=== PATIENT | male | born 1965 | race Caucasian/White ===

== ENCOUNTER 2018-05-14 13:25 | Emergency (ER) | payer MEDICAID, SELFPAY ==
[2018-05-14 13:30] VITALS: BP 118/89; PULSE 74; RESP 18; TEMP 36.7; O2SAT 100
--- NOTE | 2018-05-14 14:00 | DI.REPORT_ITS ---
SYMPTOMS/DIAGNOSIS: LT FLANK PAIN, HX OF NEPHROLITHIASIS RENAL ULTRASOUND: The kidneys are normal in size and shape. There is an apparent lower pole left renal calculus measuring about 18 mm in greatest diameter. There is no hydronephrosis on either side. The urinary bladder is empty. CONCLUSION: Findings consistent with nonobstructing left lower pole renal calculi.
--- NOTE | 2018-05-14 14:02 | ED.GENADUL_ITS ---
Disposition Instructions: Kidney Stones (ED) Additional Instructions: Encourage hydration. Continue with pain management as previously advised. Keep upcoming appointment with urology on 05/21/18 at 3PM with Aminta Malone. If you develop fevers/chills, increased flank pain, change in urinary habits or other new/worsening symptoms please seek care urgently once again. We will contact you with any positive culture results. Referrals: Karlo Daniel MD [ [facility] STAFF PHYSICIAN] - Medical Decision Making - Lab Data Laboratory Tests 05/14/18 05/14/18 05/14/18 14:20 14:20 15:07 WBC 7.73 RBC 5.10 Hgb 15.7 Hct 47.8 MCV 93.7 MCH 30.8 MCHC 32.8 RDW 13.6 Plt Count 219 MPV 8.9 Immature Gran % 0.1 Neutrophils % 64.5 Lymphocytes % 25.2 Monocytes % 6.7 Eosinophils % 3.1 Basophils % 0.4 Absolute Neutrophils 4.98 Absolute Lymphocytes 1.95 Absolute Monocytes 0.52 Absolute Eosinophils 0.24 Absolute Basophils 0.03 Sodium 138 Potassium 4.2 Chloride 104 Carbon Dioxide 30.9 Anion Gap 3.1 BUN 14 Creatinine 1.24 Estimated GFR/1.73 m2 >= 60.00 Glucose 87 Calcium 8.8 Total Bilirubin 0.6 AST 18 ALT 20 Alkaline Phosphatase 86 Total Protein 7.5 Albumin 3.3 L Lipase 99 Urine Color Yellow Urine Clarity Sl cloudy Urine pH 5.5 Ur Specific [place] 1.020 Urine Protein Negative Urine Ketones Negative Urine Blood Small H Urine Nitrite Negative Urine Bilirubin Negative Urine Urobilinogen 1.0 H Ur Leukocyte Esterase Small H Urine RBC 10-20 H Urine WBC 20-50 Ur Epithelial Cells Few Urine Crystals Negative Urine Bacteria Few Urine Casts Negative Urine Mucus Trace Urine Other Negative Ur Culture Indicated? Yes Urine Glucose Negative Results reviewed for labs ordered during visit: Yes - Medical Decision Making Patient presents today with multiple complaints. Many of which sound chronic. Constipation is unchanged. He reports that he had a large nonpainful bowel movement today. No blood in his stool. Patient was concerned about this pop he had been having a bowel movement 4 days prior. However, pain was very short- lived. He denies any abdominal pain. No abdominal pain elicited with palpation. Patient's primary concern today is that he has an infected kidney stone. He reports that he has a known kidney stone in the lower pole left kidney. This is diagnosed at the [place] 7 years ago. States that he has had waxing and waning discomfort associated with this. States that 2 days ago he began noting some small amount of discomfort on the left flank. Patient does report that the right flank hurts more than the left. However, on exam no CVA tenderness on the right side was elicited. Reports that he had fevers while at home last night. However, he is afebrile today. He appears nontoxic. Will obtain renal ultrasound and laboratory evaluation. We were contacted by radiology, they advised nonobstructing kidney stone in the lower pole of the left kidney. None noted in the right. Labs significant for small amount of leukocyte esterase in the urine. 10-20 RBCs in the urine, 20-50 WBCs in the urine. Few epithelial cells and few bacteria in the urine. Patient does report that he typically have RBCs and has been told us associated with his chronic kidney stone. No leukocytosis. No shift. Consulted with Aminta Malone NP with urology. We discussed patient's history , physical exam findings and laboratory results. She advised that at this point no intervention was necessary. Advised waiting on culture results before beginning antibiotics. She advised that is Protheus grows out she advised this should be treated by urology and begun on Cipro as this is difficult to treat with a stone. Advised f/u with urology in the next 1-2 weeks. Discussed these findings and recommendations with the patient. Encouraged hydration. Patient has chronic pain and has chronic pain plan for discomfort. He is now reporting that he needs to take any extra analgesics for the flank pain. Continues to report the flank pain is minimal at the right side remains less than the worse despite no stone on that side no CVA tenderness on exam. Patient continues to appear nontoxic. Remains afebrile. Appointment was made with urology for next week. Advised we will contact him with any positive results from culture. We discussed new/worsening symptoms when to seek care urgently once again. All his questions and concerns were addressed and he is in agreement this plan. History of Present Illness - General Chief complaint: GenMedical Stated complaint: UNKNOWN Time Seen by Provider: 05/14/18 13:32 Source: patient, RN notes reviewed Mode of arrival: ambulatory Limitations: no limitations - History of Present Illness Initial comments: Patient is a 52-year-old male today with chief complaint of left flank pain. He reports that he has history of nephrolithiasis. Reports that he has had infected stones historically and has needed to have these surgically extracted. Reports that he has a known left kidney stone. States that he is had some discomfort with urination over the past 2 days. States that it is not pain but discomfort. States it is minimal. Has not noted a change in urgency or frequency. Reports that he has history of urgency secondary to enlarged prostate. Denies dysurea. Reports that yesterday he began feeling rundown. States that he had a T-max of 103 F last night. Patient also reports that he has a long history of constipation. States that he has had difficulty with constipation for the past 5 months secondary to 3 times daily Tylenol codeine dosing. Reports that he takes stool softeners daily and typically has bowel movement every 4-5 days. Reports that he had normal hard bowel movement this morning with no discomfort. However, patient is also concerned that he felt a pop 4 days ago when straining for bowel movement. Reports that he had discomfort that was sudden and severe in the left lower quadrant. Reports that this pain resolved within the following 30 seconds and is not had discomfort in this area since. Denies any blood in his stool. Denies pain with BM today. Denies any continued abdominal pain. Denies any nausea or vomiting. Denies any chest pain or shortness of breath. - Related Data Acetaminophen [Tylenol Extra Strength] 1,000 mg PO DAILY 05/14/18 Bupropion HCl [Bupropion Xl] 300 mg PO DAILY 05/14/18 Chlor Tab 1 tab PO QAM 05/14/18 Codeine/APAP 30/300, 5 tabs/bt [Tylenol W/Codeine #3 Tablet, 5 tabs/btl] 1 tab PO DAILY 05/14/18 Gabapentin 100 mg PO BID 05/14/18 Ibuprofen [Ibuprofen Ib] 1 tab PO DIRECTED 05/14/18 Lisinopril 5 mg PO DAILY 05/14/18 Melatonin 20 mg PO HS 05/14/18 Methocarbamol 750 mg PO TID 05/14/18 Trazodone HCl 150 mg PO HS 05/14/18 Allergies Allergy/AdvReac Type Severity Reaction Status Date / Time shrimp Allergy Intermediate Skin Rash Unverified 05/14/18 13:37 Review of Systems Constitutional: see HPI, chills, fever. denies: malaise Respiratory: no symptoms reported. denies: cough, shortness of breath Cardiovascular: denies: chest pain, palpitations Gastrointestinal: as per HPI, constipation. denies: abdominal pain (None current), nausea, vomiting, melena Genitourinary: as per HPI, urgency (Chronic, patient associates it with enlarged prostate. No recent change in this), dysuria. denies: frequency, hematuria, discharge, testicular pain, testicular mass Musculoskeletal: back pain (Reports that he has left-sided back pain) Skin: denies: rash, lesions, change in color Past Medical History - Past Medical History Medical history: hypertension bipolar, nephrolithiasis s/p lithotripsy, obesity, chronic knee pain, Surgical history: other (lithotripsy) Psychiatric history: bipolar General Exam - General Limitations: no limitations General appearance: alert, in no apparent distress - Head Head exam: Present: atraumatic - Eye Eye exam: Present: normal apperance - Respiratory Respiratory exam: Present: normal lung sounds bilaterally. Absent: respiratory distress - Cardiovascular Cardiovascular Exam: Present: regular rate, normal rhythm, normal heart sounds - GI/Abdominal GI/Abdominal exam: Present: soft, normal bowel sounds. Absent: distended, tenderness, guarding, rebound, organomegaly - Rectal Rectal exam: Present: deferred - Extremities Exam Extremities exam: Present: normal inspection - Back Exam Back exam: Present: CVA tenderness (L) (minimal ). Absent: CVA tenderness (R), rash noted - Neurological Exam Neurological exam: Present: alert, normal gait - Psychiatric Psychiatric exam: Present: normal affect, normal mood - Skin Skin exam: Present: warm, dry, normal color. Absent: rash Course Vital Signs - 24 hr 05/14/18 13:30 Temperature 36.7 C Pulse 74 Respiratory 18 Rate Blood Pressure 118/89 Pulse Oximetry 100
[2018-05-14 14:27] LABS: Abs Immature Grans 0.01 k/cumm (0.0-0.09); Absolute Basophil Count 0.03 k/cumm (0.0-0.2); Absolute Eosinophil Count 0.24 k/cumm (0.0-0.7); Absolute Lymphocyte Count 1.95 k/cumm (1.2-3.4); Absolute Monocyte Count 0.52 k/cumm (0.11-0.7); Absolute Neutrophil Count 4.98 k/cumm (1.2-6.7); Basophils % 0.4; Eosinophils % 3.1; HCT 47.8 % (40.0-50.0); HGB 15.7 g/dL (13.5-17.5); Immature Grans % 0.1; Lymphocytes % 25.2; Mean Corp. HGB Concentration 32.8 g/dL (32.0-36.0); Mean Corpuscular Hemoglobin 30.8 pg (27.0-33.0); Mean Corpuscular Volume 93.7 fL (80-95); Mean Platelet Volume 8.9 fL (8.0-11.0); Monocytes % 6.7; Neutrophils % 64.5; Platelet Count 219 x1000/uL (130-400); RBC Distribution Width 13.6 % (11.8-14.1); White Blood Cell Count 7.73 k/cumm (4.4-10.8)
[2018-05-14 14:48] LABS: ALT 20 U/L (12-78); AST 18 U/L (15-37); Albumin 3.3 g/dL (3.4-5.0); Alkaline Phosphatase 86 U/L (46-116); Anion Gap 3.1 mmol/L (3-11); BUN 14 mg/dL (7-18); Bilirubin, Total 0.6 mg/dL (0.2-1.0); CO2 30.9 mmol/L (21.0-32.0); CREATININE 1.24 mg/dL (0.70-1.30); Calcium 8.8 mg/dL (8.5-10.1); Chloride 104 mmol/L (98-107); Glucose 87 mg/dL (70-100); Lipase 99 U/L (73-393); Potassium 4.2 mmol/L (3.5-5.1); Sodium 138 mmol/L (136-145); Total Protein 7.5 g/dL (6.4-8.2)
[2018-05-14 15:21] LABS: Bilirubin Negative (Negative); Blood Small (Negative); Clarity Sl Cloudy; Glucose Negative (Negative); Ketones Negative (Negative); Leukocyte Esterase Small (Negative); Nitrite Negative (Negative); pH 5.5 (5-8)
[2018-05-14 15:35] LABS: WBC 20-50 HPF (0-5)
[2018-05-14 15:36] LABS: Bacteria Few HPF (Negative); C & S Indicated? Yes; Casts Negative LPF (Negative); Crystals Negative HPF (Negative); Epithelial Cells Few HPF (Negative); Mucus Trace (Negative); Other Cells Negative (Negative)
[2018-05-14 16:26] VITALS: BP 124/65; PULSE 68; RESP 16; TEMP 36.7; O2SAT 98
== END 2018-05-14 16:04 ==
PROVIDERS: Physician Assistant; Emergency Provider Physician Assistant
DX: N20.0 Calculus of kidney (principal); I10 Essential (primary) hypertension
CPT/HCPCS: 36415; 76770; 80053; 83690; 99284; 81003; 81015; 85025; 87086

== ENCOUNTER 2018-05-21 16:23 | Outpatient (CLI) | payer MEDICAID, SELFPAY ==
[2018-05-21 17:04] LABS: Bacteria Rare HPF (Negative); Epithelial Cells Rare HPF (Negative); Other Cells Few Transitional (Negative); RBC >50 (0-2); WBC >50 HPF (0-5)
[2018-05-21 17:05] LABS: C & S Indicated? Yes; Casts Negative LPF (Negative); Crystals Few Calcium Oxalate HPF (Negative); Mucus Negative (Negative)
[2018-05-23 10:41] LABS: PSA, Screening 0.8 ng/ml (0-3.5)
== END 2018-05-21 16:24 ==
PROVIDERS: Visit Provider Nurse Practitioner Gerontology
DX: N20.0 Calculus of kidney (principal); N40.0 Benign prostatic hyperplasia without lower urinary tract symptoms; Z12.5 Encounter for screening for malignant neoplasm of prostate
CPT/HCPCS: 36415; 84153; 81015; 87086

== ENCOUNTER 2018-05-21 17:16 | Outpatient (REF) | payer MEDICAID, SELFPAY ==
[2018-05-21 21:44] LABS: Bacteria Few HPF (Negative); Crystals Few Calcium Oxalate HPF (Negative); Epithelial Cells Few HPF (Negative); Other Cells Few Transitional (Negative); RBC >50 (0-2); WBC >50 HPF (0-5)
[2018-05-21 21:45] LABS: Mucus Trace (Negative)
[2018-05-21 21:47] LABS: C & S Indicated? Yes; Casts Negative LPF (Negative)
== END 2018-05-21 17:17 ==
LOC: LBN 17:16
PROVIDERS: Visit Provider Nurse Practitioner Gerontology
DX: N20.0 Calculus of kidney (principal)
CPT/HCPCS: 81015; 87086

== ENCOUNTER 2018-06-16 00:43 | Outpatient (CLI) | payer MEDICAID, SELFPAY ==
--- NOTE | 2018-06-16 13:46 | DI.US_ITS ---
SYMPTOM/DIAGNOSIS: LT TESTICULAR PAIN, N50.812, LUMP TESTICULAR ULTRASOUND: Routine examination. No priors. The right testicle measures 3.7 by 2.7 by 2.5 cm. There is normal blood flow. No intratesticular mass is seen. There are multiple echogenic foci throughout the right testicle. No evidence of torsion. The right epididymis is grossly unremarkable. The left testicle measures 3.7 by 2.7 by 3.1 cm There is normal blood flow. No intratesticular mass is seen. No evidence of torsion is present. There are multiple echogenic foci within the testicle. The left epididymis contains multiple simple cysts throughout its length. Within the epididymal head, there is a 1.4 cm. simple cyst. Throughout the body and tail, there are at least four cysts noted. The largest superiorly measures 1.9 cm. The next largest is in the tail and measures 1.8 cm. IMPRESSION: Multiple echogenic foci seen throughout both testicles suggesting microlithiasis. Multiple cysts seen throughout the left epididymis, the largest measures 1.9 cm. No definite intratesticular mass is identified at this time.
== END 2018-06-16 01:03 ==
PROVIDERS: Visit Provider Nurse Practitioner Gerontology
DX: N50.812 Left testicular pain (principal); N50.3 Cyst of epididymis; N50.89 Other specified disorders of the male genital organs
CPT/HCPCS: 76870

== ENCOUNTER 2018-08-07 02:05 | Outpatient (CLI) | payer MEDICAID, SELFPAY | END 2018-08-07 02:25 | DX: R55 Syncope and collapse (principal); Z53.8 Procedure and treatment not carried out for other reasons ==

== ENCOUNTER 2018-10-24 10:00 | Emergency (ER) | payer MEDICAID, SELFPAY ==
[2018-10-24 10:07] VITALS: BP 135/65; PULSE 86; RESP 16; TEMP 37.2; O2SAT 95
--- NOTE | 2018-10-24 10:12 | W.ED.GENAD ---
Discharge Plan Disposition Patient Disposition: HOME Condition: Improving Discharge Details Chief Complaint: Orthopedic Clinical Impression: Right foot strain Primary Care Provider: [place] [place] ED Provider: Anup Lopez Home Meds and New Rx's Prescriptions: Continued tamsulosin 0.4 mg capsule 0.8 mg PO DAILY Qty: 180 RF: 3 buspirone 10 mg Tablet 10 mg PO BID RF: 0 hydrocodone bitartrate 10 mg Capsule, Oral Only, Er 12hr 10 mg PO Q12H RF: 0 bupropion HCl 300 MG tablet extended release 24 hr 300 mg PO DAILY RF: 0 methocarbamol 750 MG tablet 750 mg PO TID RF: 0 lisinopril 5 MG tablet 5 mg PO DAILY RF: 0 gabapentin 100 MG capsule 100 mg PO BID RF: 0 trazodone 50 MG tablet 150 mg PO HS RF: 0 acetaminophen [Tylenol Extra Strength] 500 MG tablet 1,000 mg PO DAILY RF: 0 Chlor Tab 1 tab PO QAM RF: 0 melatonin 10 MG tablet 20 mg PO HS RF: 0 Ibuprofen [Ibuprofen Ib] 200 MG tablet 1 tab PO DIRECTED RF: 0 Discharge Instructions Additional Instructions: Wear postop/hard soled shoe for 7-10 days time. Elevate and apply ice to reduce discomfort. Return or see regular doctor if you have ongoing discomfort after 10 days. Continue all regular medication Medical Decision Making 53-year-old male was walking 2 days ago when he felt a pop in his right foot at the area of the right fifth proximal metatarsal. He said pain with ambulation since that time and mild swelling. He is afebrile and otherwise well-appearing. Referred for x-ray which does not reveal acute fracture. We will place in a postop shoe to treat for strain. He understands the possibility for occult fracture and will follow-up if not improving in 7-10 days time HPI General Mode of arrival: ambulatory. Date/Time Provider Initiated Documentation: 10/24/18 10:09. Limitations to Documentation: no limitations. Information obtained by: patient. History of Present Illness 53 year old M presents to the emergency department with the chief complaint of Right foot pain times 2 days that began while walking with a pop sensation, described as moderate, Quality is described as aching, and is localized to the right and lower extremity. Patient reports no radiation. Patient started experiencing this day(s) and it has been constant. No relieving factors improve symptom(s), and Rest improves symptom(s), Movement worsens symptoms . Patient notes no other symptoms.. Patient did receive the following treatments prior to arrival, none Related Data Home Medications Medication Instructions Recorded Confirmed Chlor Tab 1 tab PO QAM 05/14/18 06/05/18 Ibuprofen [Ibuprofen Ib] 1 tab PO DIRECTED 05/14/18 10/24/18 acetaminophen [Tylenol Extra 1,000 mg PO DAILY 05/14/18 10/24/18 Strength] bupropion HCl 300 mg PO DAILY 05/14/18 10/24/18 gabapentin 100 mg PO BID 05/14/18 10/24/18 lisinopril 5 mg PO DAILY 05/14/18 10/24/18 melatonin 20 mg PO HS 05/14/18 10/24/18 methocarbamol 750 mg PO TID 05/14/18 10/24/18 trazodone 150 mg PO HS 05/14/18 10/24/18 tamsulosin 0.4 mg capsule 0.8 mg PO DAILY #180 tab-cap 06/05/18 10/24/18 buspirone 10 mg PO BID 10/24/18 10/24/18 hydrocodone bitartrate 10 mg PO Q12H 10/24/18 10/24/18 Previous Rx's Medication Instructions Recorded tamsulosin 0.4 mg capsule 0.8 mg PO DAILY #180 tab-cap 06/05/18 Allergies Allergy/AdvReac Type Severity Reaction Status Date / Time shrimp Allergy Intermediate Skin Rash Unverified 10/24/18 10:14 General Stated Complaint: Orthopedic HAYLEY: 4 Review of Systems Review of Systems 6 systems reviewed and otherwise - [facility] Social History Smoking/Tobacco Use Status: Never Exam Narrative Exam Narrative: GEN: awake, alert, oriented 3. Pleasant, well groomed, interactive. HEAD: Normocephalic, atraumatic ENT: Mucous membranes moist, oropharynx unremarkable, External ear exam unremarkable EYES: PERRL, EOMI NECK: Full ROM, no PAUL, no menigismus CHEST/RESP: Nontender, clear to auscultation bilateral, no wheeze/rhonchi/rales CARDIOVASCULAR: RRR, no murmur, rub osiel. 2+ Rad pulse bilateral EXT: Full ROM, right lateral foot at the proximal metatarsal region is swollen and tender with slight ecchymosis. 2+ DP bilaterally. Sensation and motor intact Neuro: Grossly normal neurologic exam, conversant, interactive. Psych: Speech fluent, thoughts congruent, affect normal Course Vital Signs Temperature 37.2 C 10/24/18 10:07 Pulse 86 10/24/18 10:07 Respiratory Rate 16 10/24/18 10:07 Blood Pressure 135/65 10/24/18 10:07 Pulse Oximetry 95 10/24/18 10:07 Temperature 37.2 C 10/24/18 10:07 Temperature Source Temporal Artery Scan 10/24/18 10:07 Pulse 86 10/24/18 10:07 Respiratory Rate 16 10/24/18 10:07 Respiratory Effort 10/24/18 10:10 Blood Pressure 135/65 10/24/18 10:07 Blood Pressure Position Sitting 10/24/18 10:07 Pulse Oximetry 95 10/24/18 10:07 Oxygen Delivery Method Room Air 10/24/18 10:07 Oxygen Flow Rate 0 10/24/18 10:07 Pain Level 8 10/24/18 10:07
--- NOTE | 2018-10-24 10:25 | DI.RAD_ITS ---
SYMPTOM/DIAGNOSIS: 5TH METATARSAL PROXIMAL PAIN RIGHT FOOT: 10/24/18 Three views were obtained. The patient reportedly has symptoms referable to the region of the base of the 5th metatarsal. No mid foot fracture or other significant mid-foot abnormalities seen. Note is made of prominent osteophyte of plantar fascia attachment on the calcaneus and large osseous body is seen associated with the Achilles tendon.
== END 2018-10-24 11:20 | disposition home or self-care (01) ==
PROVIDERS: Emergency Provider Emergency Medicine
DX: S96.911A Strain of unspecified muscle and tendon at ankle and foot level, right foot, initial encounter (principal); X50.9XXA Other and unspecified overexertion or strenuous movements or postures, initial encounter; I10 Essential (primary) hypertension
CPT/HCPCS: 99283; 73630; E0114

== ENCOUNTER 2019-01-26 02:09 | Outpatient (CLI) | payer MEDICAID, SELFPAY ==
--- NOTE | 2019-01-29 10:44 | HOLTER_ITS ---
HOLTER EKG REPORT DATE OF DICTATION January 29, 2019 DATE OF RECORDING January 26, 2019 DATE OF ANALYSIS January 28, 2019 REFERRING PROVIDER Susan Preciado M.D. INDICATION Seizures/spells. FINDINGS 1. Baseline sinus rhythm, 57-128 beats per minute, average 79 beats per minute. 2. Rare PAC (5/44 hours), no SVT, no atrial fibrillation. 3. Rare PVC (23/44 hours), no VT. 4. No pauses. 5. No symptoms recorded. Sonali Christy M.D. QUAN/tesfaye T - 01/29/2019
--- NOTE | 2019-02-03 15:36 | PDOC.EEG_ITS ---
EEG: [facility] Department of Neurology LONG-TERM AMBULATORY EEG REPORT Date of Recordin01/26/19 at 10:45:54 to 01/28/19 at 05:18:49 Interpreting Physician: Dr. Susan Preciado PCP/Referring Provider: Kaelyn Be NP Reason for study: Mr. Dorman is a 53-year-old man with spells of unresponsiveness lasting anywhere from 1 to 20 minutes and occurring 2-3 times per week. Current Medications: Home Medications Medication Instructions Recorded Confirmed Type Chlor Tab 1 tab PO QAM 05/14/18 01/15/19 History Ibuprofen [Ibuprofen Ib] 1 tab PO DIRECTED 05/14/18 01/15/19 History bupropion HCl 300 mg PO DAILY 05/14/18 01/15/19 History lisinopril 5 mg PO DAILY 05/14/18 01/15/19 History melatonin 20 mg PO HS 05/14/18 01/15/19 History methocarbamol 750 mg PO TID 05/14/18 01/15/19 History buspirone 10 mg PO BID 10/24/18 01/15/19 History hydrocodone bitartrate 10 mg PO Q12H 10/24/18 01/15/19 History gabapentin 300 mg capsule 300 mg PO TID 11/20/18 01/15/19 History tamsulosin 0.4 mg capsule 0.4 mg PO DAILY #180 tab-cap 11/20/18 01/15/19 Rx acetaminophen 500 mg tablet 1,500 mg PO DAILY tab 01/15/19 01/15/19 History furosemide 20 mg tablet 20 mg PO DAILY 01/15/19 01/15/19 History trazodone 50 mg tablet 200 mg PO HS tab 01/15/19 01/15/19 History METHODS: An 18-channel digitized electroencephalogram was recorded in the ambulatory setting with video. The 10/20 international system of electrode placement was used and bipolar and referential electrode montages were recorded. In addition to EEG the patient was monitored for EKG and by video. Activation procedures of photic stimulation and hyperventilation were performed if applicable. The duration of the recording was ~42.5 hours. DESCRIPTION OF EEG: Waking background activity: During maximal wakefulness a 10-Hz posterior background rhythm was present which was well-modulated, symmetrical, reactive to eye opening, and of moderate voltage. Faster frequencies were present in the bilateral anterior head regions. There was a normal anterior-posterior voltage gradient. Drowsy and sleeping background activity: During drowsiness, there was att enuation of the posterior dominant background rhythm and vertex waves. Normal stage II and III sleep was present with symmetrical sleep spindles, K-complexes, and vertex waves with slowing of the background rhythm to delta/theta frequencies. REM sleep manifested by rapid lateral eye movements and faster background rhythms was recorded. Arousal was unremarkable. There were frequent arousals during sleep. Interictal abnormalities: none. Ictal findings: No events were recorded. Activating Procedures: Photic stimulation was performed which produced no posterior driving response. Hyperventilation was performed with moderate effort and produced no physiological slowing of the background. EKG: EKG revealed normal sinus rhythm. INTERPRETATION: This long-term EEG is normal during the awake and sleep states as well as during the activation procedures. No events were recorded. There were frequent awakenings/arousals out of sleep. PRIOR EEG: none CLINICAL CORRELATION: No focal regions of cerebral dysfunction or epileptiform activity was present. Epilepsy remains a clinical diagnosis and a normal EEG does not rule out epilepsy. There were frequent nocturnal arousals which is concerning for an underlying sleep disorder. Clinical correlation is advised. Susan Preciado MD
== END 2019-01-26 02:29 ==
PROVIDERS: Visit Provider Psychiatry & Neurology Neurology
DX: R41.82 Altered mental status, unspecified (principal); I49.1 Atrial premature depolarization; I49.3 Ventricular premature depolarization
CPT/HCPCS: 93225

== ENCOUNTER 2019-01-26 02:18 | Outpatient (CLI) | payer MEDICAID, SELFPAY | END 2019-01-26 02:38 | PROVIDERS: Visit Provider Psychiatry & Neurology Neurology | DX: R40.4 Transient alteration of awareness (principal); R41.82 Altered mental status, unspecified | CPT/HCPCS: 95953 ==

== ENCOUNTER 2019-01-28 13:31 | Outpatient (CLI) | payer MEDICAID, SELFPAY | END 2019-01-28 13:51 | PROVIDERS: Visit Provider Psychiatry & Neurology Neurology | DX: R41.82 Altered mental status, unspecified (principal); I49.1 Atrial premature depolarization; I49.3 Ventricular premature depolarization | CPT/HCPCS: 93226 ==

== ENCOUNTER 2019-02-09 15:07 | Observation (INO) | payer MEDICAID, SELFPAY ==
[2019-02-09] VITALS (70 sets, daily range): BP systolic 104–156; BP diastolic 61–125; PULSE 71–101; RESP 10–37; TEMP 26.6–37.1; O2SAT 91–99
--- NOTE | 2019-02-09 15:27 | DI.COMBO_ITS ---
SYMPTOM/DIAGNOSIS: SOB, FATIGUE, MULTIPLE EPISODES OF SYNCOPE VS SEIZURE, S/P FALL PA AND LATERAL CHEST: The heart is normal in size. The lungs are clear. The mediastinal structures and pleura appear intact. CONCLUSION: Normal chest. No evidence of acute cardiopulmonary disease. NONCONTRAST HEAD CT: A noncontrast enhanced examination was performed. There is no evidence of an intra/extra-axial hemorrhage. There is nothing to suggest a territorial infarct. The midline is well maintained. The ventricles are normal. There is no evidence of a skull fracture. Mucosal thickening is noted in the ethmoid air cells and frontal sinuses consistent with chronic sinusitis. No fluid level is seen. There is no evidence of a mastoid effusion. The soft tissues are unremarkable. Atherosclerotic calcific plaque is identified in the visualized distal internal carotid artery segments. CONCLUSION: No acute abnormality is seen. Note is made of findings consistent with chronic sinusitis involving primarily the ethmoid sinuses.
--- NOTE | 2019-02-09 15:31 | W.ED.GENAD ---
Discharge Plan Disposition Patient Disposition: [facility] INPATIENT Condition: Stable Discharge Details Chief Complaint: GenMedical Clinical Impression: Syncope, Chest pressure Primary Care Provider: Kaelyn Be ED Provider: Kevin Harris Home Meds and New Rx's Prescriptions: No Action furosemide 20 mg tablet 20 mg PO DAILY RF: 0 gabapentin 300 mg capsule 300 mg PO TID RF: 0 tamsulosin 0.4 mg capsule 0.4 mg PO DAILY Qty: 180 RF: 3 trazodone 50 mg tablet 200 mg PO HS RF: 0 buspirone 10 mg Tablet 10 mg PO BID RF: 0 hydrocodone bitartrate 10 mg Capsule, Oral Only, Er 12hr 10 mg PO Q12H RF: 0 bupropion HCl 300 MG tablet extended release 24 hr 300 mg PO DAILY RF: 0 methocarbamol 750 MG tablet 750 mg PO TID RF: 0 lisinopril 5 MG tablet 5 mg PO DAILY RF: 0 Chlor Tab 1 tab PO QAM RF: 0 melatonin 10 MG tablet 20 mg PO HS RF: 0 Ibuprofen [Ibuprofen Ib] 200 MG tablet 1 tab PO DIRECTED RF: 0 acetaminophen [Tylenol Extra Strength] 500 mg tablet 1,500 mg PO DAILY RF: 0 Medical Decision Making This is a pleasant 53-year-old female who presents today for evaluation of fatigue, chest heaviness, and shortness of breath over the last 72 hours. He has had multiple episodes of blackout over the last few months, and this is being currently worked up with Dr. Evans. The symptoms of shortness of breath chest heaviness and fatigue are independent of that. Physical exam demonstrates no focal neurologic deficits or signs of trauma. He has no history of MN or stroke. Neurologic exam is normal. The patient's chest heaviness is clearly concerning for potential cardiac etiology versus PE versus dehydration. We will gently rehydrate, perform laboratory and imaging work-up and reassess. Of note he had an EEG monitor on 02/03/2019 which was 6 days ago as well as Holter monitor on 01/29/2019 which demonstrated the included results pasted below. 7:03 PM The patient's laboratory work-up is returned relatively benign. EKG shows no evidence of ACS at this time. Troponin is normal at less than 0.02. TSH is slightly elevated, however free T4 is normal. proBNP also normal. D-dimer is well within normal limit for PE rule out. Chest x-ray was ordered and shows no acute process, head CT demonstrates no evidence of acute intracranial bleed or stroke. Because of the patient's age, multiple syncopal or blackout episodes, as well as with his atypical chest symptoms, I do feel that he would benefit from serial troponins, serial EKGs, and cardiology evaluation. [facility] however he is requesting admission here to the hospital at [facility]. We did contact the officer on duty at the [place] and discussed this with him, and the patient does have Medicare Medicaid, to help with any bills here, the [place] has agreed and has allow the patient to stay. I discussed the case with Dr. Shrestha, he agrees with the assessment and plan. I have extensively reviewed the treatment plan with the patient. I have addressed all patient concerns at this time. I have also discussed the plan with the admitting physician and they agree with the current assessment and plan and have agreed to assume responsibility for the patient. All parties demonstrate verbal understanding and agreement with our assessment and plan at this time. EKG 15: 20 Rate 93, intervals normal, sinus rhythm, no significant ST elevations or depressions. No T wave inversions. No Q waves. Normal EKG EKG: EKG revealed normal sinus rhythm. INTERPRETATION: This long-term EEG is normal during the awake and sleep states as well as during the activation procedures. No events were recorded. There were frequent awakenings/arousals out of sleep. PRIOR EEG: none CLINICAL CORRELATION: No focal regions of cerebral dysfunction or epileptiform activity was present. Epilepsy remains a clinical diagnosis and a normal EEG does not rule out epilepsy. There were frequent nocturnal arousals which is concerning for an underlying sleep disorder. Clinical correlation is advised. INDICATION Seizures/spells. FINDINGS 1. Baseline sinus rhythm, 57-128 beats per minute, average 79 beats per minute. 2. Rare PAC ( hours), no SVT, no atrial fibrillation. 3. Rare PVC ( hours), no VT. 4. No pauses. 5. No symptoms recorded. Sonali Christy M.D. QUAN/tesfaye T - 01/29/2019 EXAM DATE/TIME: 02/09/2019 4:44 PM CLINICAL HISTORY: 53 years old, male; Signs and symptoms; Shortness of breath and other: blackouts, dizziness TECHNIQUE: Imaging protocol: XR of the chest, 2 views. COMPARISON: No relevant prior studies available. FINDINGS: Lungs: Lung kc are clear. No infiltrates. Pleural space: No pleural effusion. No pneumothorax. Heart/Mediastinum: Heart size normal. No mediastinal widening. Pulmonary vaculature normal. No tracheal shift. Bones/joints: No acute osseous abnormalities are identified. IMPRESSION: No acute thoracic process. Dictated and Authenticated by: Wojciech Lewis MD. Ordering:JOHN Brown MD EXAM DATE/TIME: 02/09/2019 3:29 PM CLINICAL HISTORY: 53 years old, male; Signs and symptoms; Dizziness and other: Fatigue TECHNIQUE: Imaging protocol: Axial computed tomography images of the head without contrast. Coronal and sagittal reformatted images were created and reviewed. COMPARISON: MRI BRAIN W/WO 01/21/2019 8:59 AM FINDINGS: Brain: No extra-axial fluid collections. No evidence of acute intracranial hemorrhage. No evidence of acute or subacute intracranial ischemia/infarct. No intracranial mass lesions. Midline shift: No midline shift or herniation. Ventricles: Ventricles normal. Bones/joints: The calvarium and visualized facial bones are intact. Sinuses: Mucosal thickening in the ethmoid air cells and to a lesser degree frontal sinuses consistent with chronic sinus inflammatory disease. No fluid levels. Mastoid air cells: Visualized mastoid air cells are clear. Orbits: Orbital contents demonstrate no evidence of acute abnormality. Soft tissues: The scalp and visualized soft tissues are unremarkable. Vasculature: Mild atherosclerotic calcific plaque is identified in the visualized distal ICA segments . IMPRESSION: 1. No acute intracranial process. 2. Evidence of chronic sinus inflammatory disease involving primarily the ethmoid air cell distributions. Dictated and Authenticated by: Wojciech Lewis MD. Ordering:JOHN Brown MD HPI General Date/Time Provider Initiated Documentation: 02/09/19 15:12. HPI Narrative: This is a 53-year-old male with a past medical history of chronic kidney stones, who was on furosemide for fluid retention, has been having multiple episodes of syncope versus absence seizure over the last few months, and he is being worked up by Dr. Evans on an outpatient basis. He presents today for evaluation of fatigue, shortness of breath, and chest heaviness. Patient states that the symptoms have been present for the last 72 hours, there was some improvement 24 hours ago and then today it got notably worse again. His chest heaviness is present with the notable fatigue. No pleuritic chest pain. No chest pain in general, arm, neck or shoulder pain or chest tightness. He does admit to some chronic left arm tingling which is otherwise unchanged. He also admits to occasional spasms in his lower extremities and some bruising and swelling that he noted on his foot. He denies any fever, chills, vomiting, diarrhea. He denies any history of PE, MN, or stroke. He denies any other complaints or associated factors. He did have a recent MRI, however the results are not yet back at this time. He did have one episode of syncope versus blackout since then, however at that time he did not fall, hit his head, or have any trauma at that time. Denies PE risk factors such as recent long car rides, immobilization, recent surgery, prior history of DVT or PE, family history of PE or DVT, morbid obesity, exogenous estrogen and smoking, hemoptysis, history of cancer. Patient denies any bowel or bladder incontinence, tongue biting, or tonic-clonic seizure. No other modifying factors. Related Data Home Medications Medication Instructions Recorded Confirmed Chlor Tab 1 tab PO QAM 05/14/18 01/15/19 Ibuprofen [Ibuprofen Ib] 1 tab PO DIRECTED 05/14/18 01/15/19 bupropion HCl 300 mg PO DAILY 05/14/18 01/15/19 lisinopril 5 mg PO DAILY 05/14/18 01/15/19 melatonin 20 mg PO HS 05/14/18 01/15/19 methocarbamol 750 mg PO TID 05/14/18 01/15/19 buspirone 10 mg PO BID 10/24/18 01/15/19 hydrocodone bitartrate 10 mg PO Q12H 10/24/18 01/15/19 gabapentin 300 mg capsule 300 mg PO TID 11/20/18 01/15/19 tamsulosin 0.4 mg capsule 0.4 mg PO DAILY #180 tab-cap 11/20/18 01/15/19 acetaminophen 500 mg tablet 1,500 mg PO DAILY tab 01/15/19 01/15/19 furosemide 20 mg tablet 20 mg PO DAILY 01/15/19 01/15/19 trazodone 50 mg tablet 200 mg PO HS tab 01/15/19 01/15/19 Previous Rx's Medication Instructions Recorded tamsulosin 0.4 mg capsule 0.4 mg PO DAILY #180 tab-cap 11/20/18 Allergies Allergy/AdvReac Type Severity Reaction Status Date / Time shrimp Allergy Intermediate Skin Rash Unverified 01/15/19 09:09 amlodipine Allergy Unknown Verified 01/15/19 09:09 zolpidem Allergy Unknown Verified 01/15/19 09:09 General Stated Complaint: GenMedical HAYLEY: 2 Review of Systems Review of Systems All systems reviewed & are unremarkable except as noted in HPI and below PFSH Social History Smoking/Tobacco Use Status: Never Alcohol Intake: former Drug use: Never Substance use type: does not use Household members: spouse Housing: apartment Number of Children: 3 current occupation: Disabled. [employer]. Do you feel safe at home: Yes Do you feel safe in your relationship?: Yes Exam Narrative Exam Narrative: 1.Const: Well-nourished, Well-developed, appearing stated age 2.Eyes: PERRL, no conjunctival injection, and symmetrical lids. 3.ENT: Atraumatic external nose and ears. Moist MM. Neck: Symmetric, trachea midline, No thyromegaly. There is no evidence of raccoon eyes, rodriguez sign, CSF rhinorrhea, mastoid tenderness, cranial crepitus, hemotympanum, exophthalmos, or hyphema. 4.CVS: +S1/S2, No murmurs or gallops. Peripheral pulses 2+ and equal in all extremities. Brisk capillary refill in all extremities. 5.RESP: Unlabored respiratory effort. Clear to auscultation bilaterally. No wheezes rales or rhonchi 6.GI: Soft, Nontender/Nondistended, No hepatosplenomegaly. No guarding or rebound. 7.MSK: Normocephalic/Atraumatic, Extremities w/o deformity or ttp No cyanosis or clubbing, Normal movement of all extremities. No evidence of significant trauma. Mild bruising around his left lower extremity by the ankle, no pain or tenderness with movement though. Trace pitting edema of the left lower extremity 8.Skin: Warm, Dry. No rashes or lesions. 9.Neuro: flying ii instructor II-XII grossly intact. Sensation grossly intact, no focal neurologic deficits. All 6 cardinal planes of vision are fully intact. No evidence of rotatory or vertical nystagmus. The patient demonstrated a normal [id number], good dexterity. There was no evidence of dysdiadochokinesia. Patient was able to ambulate without difficulty. There was no wide-based gait. Romberg, and iplo-[id number] are both normal on testing. Sensation was intact bilaterally as well as muscle strength bilaterally for all extremities. Patient was able to verbalize butter cup with no slurring, or miss pronunciation. 10.Psych: (AAO) x3. Appropriate mood and affect Course Vital Signs Temperature 26.6 C L 02/09/19 15:15 Pulse 94 H 02/09/19 15:15 Respiratory Rate 16 02/09/19 15:15 Blood Pressure 142/78 H 02/09/19 15:15 Pulse Oximetry 93 L 02/09/19 15:15 Temperature 26.6 C L 02/09/19 15:15 Pulse 94 H 02/09/19 15:15 Respiratory Rate 16 02/09/19 15:15 Blood Pressure 142/78 H 02/09/19 15:15 Blood Pressure Position Sitting 02/09/19 15:15 Pulse Oximetry 93 L 02/09/19 15:15
--- NOTE | 2019-02-09 15:37 | ED.GENADUL_ITS ---
Discharge Plan Disposition Patient Disposition: [facility] INPATIENT Condition: Stable Discharge Details Chief Complaint: GenMedical Clinical Impression: Syncope, Chest pressure Primary Care Provider: Kaelyn Be ED Provider: Kevin Harris Home Meds and New Rx's Prescriptions: No Action furosemide 20 mg tablet 20 mg PO DAILY RF: 0 gabapentin 300 mg capsule 300 mg PO TID RF: 0 tamsulosin 0.4 mg capsule 0.4 mg PO DAILY Qty: 180 RF: 3 trazodone 50 mg tablet 200 mg PO HS RF: 0 buspirone 10 mg Tablet 10 mg PO BID RF: 0 hydrocodone bitartrate 10 mg Capsule, Oral Only, Er 12hr 10 mg PO Q12H RF: 0 bupropion HCl 300 MG tablet extended release 24 hr 300 mg PO DAILY RF: 0 methocarbamol 750 MG tablet 750 mg PO TID RF: 0 lisinopril 5 MG tablet 5 mg PO DAILY RF: 0 Chlor Tab 1 tab PO QAM RF: 0 melatonin 10 MG tablet 20 mg PO HS RF: 0 Ibuprofen [Ibuprofen Ib] 200 MG tablet 1 tab PO DIRECTED RF: 0 acetaminophen [Tylenol Extra Strength] 500 mg tablet 1,500 mg PO DAILY RF: 0 Medical Decision Making This is a pleasant 53-year-old female who presents today for evaluation of fatigue, chest heaviness, and shortness of breath over the last 72 hours. He has had multiple episodes of blackout over the last few months, and this is being currently worked up with Dr. Evans. The symptoms of shortness of breath chest heaviness and fatigue are independent of that. Physical exam demonstrates no focal neurologic deficits or signs of trauma. He has no history of RI or stroke. Neurologic exam is normal. The patient's chest heaviness is clearly concerning for potential cardiac etiology versus PE versus dehydration. We will gently rehydrate, perform laboratory and imaging work-up and reassess. Of note he had an EEG monitor on 02/03/2019 which was 6 days ago as well as Holter monitor on 01/29/2019 which demonstrated the included results pasted below. 7:03 PM The patient's laboratory work-up is returned relatively benign. EKG shows no evidence of ACS at this time. Troponin is normal at less than 0.02. TSH is slightly elevated, however free T4 is normal. proBNP also normal. D-dimer is well within normal limit for PE rule out. Chest x-ray was ordered and shows no acute process, head CT demonstrates no evidence of acute intracranial bleed or stroke. Because of the patient's age, multiple syncopal or blackout episodes, as well as with his atypical chest symptoms, I do feel that he would benefit from serial troponins, serial EKGs, and cardiology evaluation. The [facility] however he is requesting admission here to the hospital at [facility]. We did contact the officer on duty at the [place] and discussed this with him, and the patient does have Medicare Medicaid, to help with any bills here, the [place] has agreed and has allow the patient to stay. I discussed the case with Dr. Shrestha, he agrees with the assessment and plan. I have extensively reviewed the treatment plan with the patient. I have addressed all patient concerns at this time. I have also discussed the plan with the admitting physician and they agree with the current assessment and plan and have agreed to assume responsibility for the patient. All parties demonstrate verbal understanding and agreement with our assessment and plan at this time. EKG 15: 20 Rate 93, intervals normal, sinus rhythm, no significant ST elevations or depressions. No T wave inversions. No Q waves. Normal EKG EKG: EKG revealed normal sinus rhythm. INTERPRETATION: This long-term EEG is normal during the awake and sleep states as well as during the activation procedures. No events were recorded. There were frequent awakenings/arousals out of sleep. PRIOR EEG: none CLINICAL CORRELATION: No focal regions of cerebral dysfunction or epileptiform activity was present. Epilepsy remains a clinical diagnosis and a normal EEG does not rule out epilepsy. There were frequent nocturnal arousals which is concerning for an underlying sleep disorder. Clinical correlation is advised. INDICATION Seizures/spells. FINDINGS 1. Baseline sinus rhythm, 57-128 beats per minute, average 79 beats per minute. 2. Rare PAC ( hours), no SVT, no atrial fibrillation. 3. Rare PVC ( hours), no VT. 4. No pauses. 5. No symptoms recorded. Sonali Christy M.D. QUAN/tesfaye T - 01/29/2019 EXAM DATE/TIME: 02/09/2019 4:44 PM CLINICAL HISTORY: 53 years old, male; Signs and symptoms; Shortness of breath and other: blackouts, dizziness TECHNIQUE: Imaging protocol: XR of the chest, 2 views. COMPARISON: No relevant prior studies available. FINDINGS: Lungs: Lung kc are clear. No infiltrates. Pleural space: No pleural effusion. No pneumothorax. Heart/Mediastinum: Heart size normal. No mediastinal widening. Pulmonary vaculature normal. No tracheal shift. Bones/joints: No acute osseous abnormalities are identified. IMPRESSION: No acute thoracic process. Dictated and Authenticated by: Wojciech Lewis MD. Ordering:JOHN Brown MD EXAM DATE/TIME: 02/09/2019 3:29 PM CLINICAL HISTORY: 53 years old, male; Signs and symptoms; Dizziness and other: Fatigue TECHNIQUE: Imaging protocol: Axial computed tomography images of the head without contrast. Coronal and sagittal reformatted images were created and reviewed. COMPARISON: MRI BRAIN W/WO 01/21/2019 8:59 AM FINDINGS: Brain: No extra-axial fluid collections. No evidence of acute intracranial hemorrhage. No evidence of acute or subacute intracranial ischemia/infarct. No intracranial mass lesions. Midline shift: No midline shift or herniation. Ventricles: Ventricles normal. Bones/joints: The calvarium and visualized facial bones are intact. Sinuses: Mucosal thickening in the ethmoid air cells and to a lesser degree frontal sinuses consistent with chronic sinus inflammatory disease. No fluid levels. Mastoid air cells: Visualized mastoid air cells are clear. Orbits: Orbital contents demonstrate no evidence of acute abnormality. Soft tissues: The scalp and visualized soft tissues are unremarkable. Vasculature: Mild atherosclerotic calcific plaque is identified in the visualized distal ICA segments . IMPRESSION: 1. No acute intracranial process. 2. Evidence of chronic sinus inflammatory disease involving primarily the ethmoid air cell distributions. Dictated and Authenticated by: Wojciech Lewis MD. Ordering:JOHN Brown MD HPI General Date/Time Provider Initiated Documentation: 02/09/19 15:12 . HPI Narrative: This is a 53-year-old male with a past medical history of chronic kidney stones, who was on furosemide for fluid retention, has been having multiple episodes of syncope versus absence seizure over the last few months, and he is being worked up by Dr. Evans on an outpatient basis. He presents today for evaluation of fatigue, shortness of breath, and chest heaviness. Patient states that the symptoms have been present for the last 72 hours, there was some improvement 24 hours ago and then today it got notably worse again. His chest heaviness is present with the notable fatigue. No pleuritic chest pain. No chest pain in general, arm, neck or shoulder pain or chest tightness. He does admit to some chronic left arm tingling which is otherwise unchanged. He also admits to occasional spasms in his lower extremities and some bruising and swelling that he noted on his foot. He denies any fever, chills, vomiting, diarrhea. He denies any history of PE, RI, or stroke. He denies any other complaints or associated factors. He did have a recent MRI, however the results are not yet back at this time. He did have one episode of syncope versus blackout since then, however at that time he did not fall, hit his head, or have any trauma at that time. Denies PE risk factors such as recent long car rides, immobilization, recent surgery, prior history of DVT or PE, family history of PE or DVT, morbid obesity, exogenous estrogen and smoking, hemoptysis, history of cancer. Patient denies any bowel or bladder incontinence, tongue biting, or tonic-clonic seizure. No other modifying factors. Related Data Home Medications Medication Instructions Recorded Confirmed Chlor Tab 1 tab PO QAM 05/14/18 01/15/19 Ibuprofen [Ibuprofen Ib] 1 tab PO DIRECTED 05/14/18 01/15/19 bupropion HCl 300 mg PO DAILY 05/14/18 01/15/19 lisinopril 5 mg PO DAILY 05/14/18 01/15/19 melatonin 20 mg PO HS 05/14/18 01/15/19 methocarbamol 750 mg PO TID 05/14/18 01/15/19 buspirone 10 mg PO BID 10/24/18 01/15/19 hydrocodone bitartrate 10 mg PO Q12H 10/24/18 01/15/19 gabapentin 300 mg capsule 300 mg PO TID 11/20/18 01/15/19 tamsulosin 0.4 mg capsule 0.4 mg PO DAILY #180 tab-cap 11/20/18 01/15/19 acetaminophen 500 mg tablet 1,500 mg PO DAILY tab 01/15/19 01/15/19 furosemide 20 mg tablet 20 mg PO DAILY 01/15/19 01/15/19 trazodone 50 mg tablet 200 mg PO HS tab 01/15/19 01/15/19 Previous Rx's Medication Instructions Recorded tamsulosin 0.4 mg capsule 0.4 mg PO DAILY #180 tab-cap 11/20/18 Allergies Allergy/AdvReac Type Severity Reaction Status Date / Time shrimp Allergy Intermediate Skin Rash Unverified 01/15/19 09:09 amlodipine Allergy Unknown Verified 01/15/19 09:09 zolpidem Allergy Unknown Verified 01/15/19 09:09 General Stated Complaint: GenMedical HAYLEY: 2 Review of Systems Review of Systems All systems reviewed & are unremarkable except as noted in HPI and below PFSH Social History Smoking/Tobacco Use Status: Never Alcohol Intake: former Drug use: Never Substance use type: does not use Household members: spouse Housing: apartment Number of Children: 3 current occupation: Disabled. [employer]. Do you feel safe at home: Yes Do you feel safe in your relationship?: Yes Exam Narrative Exam Narrative: 1.Const: Well-nourished, Well-developed, appearing stated age 2.Eyes: PERRL, no conjunctival injection, and symmetrical lids. 3.ENT: Atraumatic external nose and ears. Moist MM. Neck: Symmetric, trachea midline, No thyromegaly. There is no evidence of raccoon eyes, rodriguez sign, CSF rhinorrhea, mastoid tenderness, cranial crepitus, hemotympanum, exophthalmos, or hyphema. 4.CVS: +S1/S2, No murmurs or gallops. Peripheral pulses 2+ and equal in all extremities. Brisk capillary refill in all extremities. 5.RESP: Unlabored respiratory effort. Clear to auscultation bilaterally. No wheezes rales or rhonchi 6.GI: Soft, Nontender/Nondistended, No hepatosplenomegaly. No guarding or rebound. 7.MSK: Normocephalic/Atraumatic, Extremities w/o deformity or ttp No cyanosis or clubbing, Normal movement of all extremities. No evidence of significant trauma. Mild bruising around his left lower extremity by the ankle, no pain or tenderness with movement though. Trace pitting edema of the left lower extremity 8.Skin: Warm, Dry. No rashes or lesions. 9.Neuro: buckle sorter II-XII grossly intact. Sensation grossly intact, no focal neurologic deficits. All 6 cardinal planes of vision are fully intact. No evidence of rotatory or vertical nystagmus. The patient demonstrated a normal [id number], good dexterity. There was no evidence of dysdiadochokinesia. Patient was able to ambulate without difficulty. There was no wide-based gait. Romberg, and [id number] are both normal on testing. Sensation was intact bilaterally as well as muscle strength bilaterally for all extremities. Patient was able to verbalize butter cup with no slurring, or miss pronunciation. 10.Psych: (AAO) x3. Appropriate mood and affect Course Vital Signs Temperature 26.6 C L 02/09/19 15:15 Pulse 94 H 02/09/19 15:15 Respiratory Rate 16 02/09/19 15:15 Blood Pressure 142/78 H 02/09/19 15:15 Pulse Oximetry 93 L 02/09/19 15:15 Temperature 26.6 C L 02/09/19 15:15 Pulse 94 H 02/09/19 15:15 Respiratory Rate 16 02/09/19 15:15 Blood Pressure 142/78 H 02/09/19 15:15 Blood Pressure Position Sitting 02/09/19 15:15 Pulse Oximetry 93 L 02/09/19 15:15
[2019-02-09 15:41] LABS: Abs Immature Grans 0.02 k/cumm (0.0-0.09); Absolute Basophil Count 0.03 k/cumm (0.0-0.2); Absolute Eosinophil Count 0.32 k/cumm (0.0-0.7); Absolute Lymphocyte Count 2.63 k/cumm (1.2-3.4); Absolute Monocyte Count 0.69 k/cumm (0.11-0.7); Absolute Neutrophil Count 5.36 k/cumm (1.2-6.7); Basophils % 0.3; Eosinophils % 3.5; HCT 49.7 % (40.0-50.0); HGB 16.3 g/dL (13.5-17.5); Immature Grans % 0.2; Lymphocytes % 29.1; Mean Corp. HGB Concentration 32.8 g/dL (32.0-36.0); Mean Corpuscular Hemoglobin 30.7 pg (27.0-33.0); Mean Corpuscular Volume 93.6 fL (80-95); Mean Platelet Volume 8.7 fL (8.0-11.0); Monocytes % 7.6; Neutrophils % 59.3; Platelet Count 216 x1000/uL (130-400); RBC 5.31 m/cumm (4.50-6.00); RBC Distribution Width 13.5 % (11.8-14.1); White Blood Cell Count 9.05 k/cumm (4.4-10.8)
[2019-02-09 15:56] LABS: Prothrombin Time 9.8 sec (9.3-11.0)
[2019-02-09 16:08] LABS: ALT 28 U/L (12-78); AST 15 U/L (15-37); Albumin 3.5 g/dL (3.4-5.0); Alkaline Phosphatase 84 U/L (46-116); Anion Gap 10.6 mmol/L (3-11); BUN 18 mg/dL (7-18); Bilirubin, Total 0.3 mg/dL (0.2-1.0); CO2 26.4 mmol/L (21.0-32.0); CREATININE 1.32 mg/dL (0.70-1.30); Calcium 9.1 mg/dL (8.5-10.1); Chloride 103 mmol/L (98-107); Estimated GFR 56.31 (mL/min/1.73m2); Glucose 111 mg/dL (70-100); NT-proBNP 40 pg/mL; Potassium 3.8 mmol/L (3.5-5.1); Sodium 140 mmol/L (136-145); TSH (W/Ref FT4) 5.61 uIU/mL (0.358-3.74); Total Protein 7.7 g/dL (6.4-8.2)
[2019-02-09 16:13] LABS: Troponin I < 0.02 ng/mL (0.00-0.06)
[2019-02-09 16:25] LABS: D-Dimer 389 ng/mlFEU (<500)
[2019-02-09 16:53] LABS: FREE T4 0.77 ng/dL (0.76-1.46)
--- NOTE | 2019-02-09 18:20 | DI.VRAD_ITS ---
EXAM: XR Chest, 2 Views EXAM DATE/TIME: 02/09/2019 4:44 PM CLINICAL HISTORY: 53 years old, male; Signs and symptoms; Shortness of breath and other: blackouts, dizziness TECHNIQUE: Imaging protocol: XR of the chest, 2 views. COMPARISON: No relevant prior studies available. FINDINGS: Lungs: Lung kc are clear. No infiltrates. Pleural space: No pleural effusion. No pneumothorax. Heart/Mediastinum: Heart size normal. No mediastinal widening. Pulmonary vaculature normal. No tracheal shift. Bones/joints: No acute osseous abnormalities are identified. IMPRESSION: No acute thoracic process. Dictated and Authenticated by: Wojciech Lewis MD. Ordering:JOHN Brown MD
--- NOTE | 2019-02-09 18:23 | DI.VRAD_ITS ---
EXAM: CT Head Without Contrast EXAM DATE/TIME: 02/09/2019 3:29 PM CLINICAL HISTORY: 53 years old, male; Signs and symptoms; Dizziness and other: Fatigue TECHNIQUE: Imaging protocol: Axial computed tomography images of the head without contrast. Coronal and sagittal reformatted images were created and reviewed. COMPARISON: MRI BRAIN W/WO 01/21/2019 8:59 AM FINDINGS: Brain: No extra-axial fluid collections. No evidence of acute intracranial hemorrhage. No evidence of acute or subacute intracranial ischemia/infarct. No intracranial mass lesions. Midline shift: No midline shift or herniation. Ventricles: Ventricles normal. Bones/joints: The calvarium and visualized facial bones are intact. Sinuses: Mucosal thickening in the ethmoid air cells and to a lesser degree frontal sinuses consistent with chronic sinus inflammatory disease. No fluid levels. Mastoid air cells: Visualized mastoid air cells are clear. Orbits: Orbital contents demonstrate no evidence of acute abnormality. Soft tissues: The scalp and visualized soft tissues are unremarkable. Vasculature: Mild atherosclerotic calcific plaque is identified in the visualized distal ICA segments . IMPRESSION: 1. No acute intracranial process. 2. Evidence of chronic sinus inflammatory disease involving primarily the ethmoid air cell distributions. Dictated and Authenticated by: Wojciech Lewis MD. Ordering:JOHN Brown MD
--- NOTE | 2019-02-09 19:01 | W.PM.HP.N ---
Date of service: 02/09/19 Time of Service: 19:01 Assessment and Plan (1) Atypical chest pain: Start date: 02/09/19 Current visit: Yes Status: Acute This is a 53-year-old gentleman who had a recent onset of spells which appear to be absent spells but he was fully awake and alert each episode after he awakened from his loss of memory. He at times would feel the episodes coming on and had slight dizziness. Over the weekend he began to have chest pressure and heaviness with episodes of fading without loss of consciousness. In the emergency room he had a negative evaluation but was admitted for serial cardiac enzymes and cardiac monitoring with cardiology to see him in the morning. He has not had recurrent episodes in the hospital. [facility] would want to stay here for evaluation and is seeing a neurologist locally. (2) Syncope: Start date: 02/09/19 Current visit: Yes Status: Acute These episodes have been occurring for months with evaluation by neurology for possible seizure activity which is been negative. Over the weekend these appear to be more cardiovascular with the patient stating not completely losing consciousness and being aware of his surroundings throughout the episodes. Further evaluation will be to rule out cardiac etiology and review his medications for interactions. Qualifiers: Syncope type: unspecified Qualified Code(s): R55 - Syncope and collapse History of Present Illness Chief Complaint: Recurrent chest pressure at rest with recent absence seizures vs syncope Narrative: Is a very pleasant 53-year-old gentleman who is a [facility] who has recently been having episodes of absence spells been evaluated by neurology with a negative work-up. Over the weekend he began to have chest pressure which was retrosternal and heaviness without radiation but having some shortness of breath and difficulty catching his breath. Currently he was laying down and resting and he felt as if he could not breathe correctly and was trying to wake himself up. He does have sleep apnea and is overweight trying to lose weight. His knees are very severely arthritic and he wants to get below 300 pounds where he could have his knees done. He is planning on having a gastric band to help with the rest of his weight loss but has not done this as of yet. He does not diet with any unusual feeding pattern and is eating more healthfully. Is very active. Activity does not appear to be associated with his symptoms. On the night of admission the patient reported to the ED because of recurrent chest pressure and symptoms. See ED report. Review of systems per ED report. Patient has been on multiple medications to help with his sleep and is Flomax recently was increased from 0.4 0.8 mg. He is on a higher dose of melatonin at 10 mg at night and trazodone which was higher at 300 mg is been decreased recently to 200 mg. The neurologist thinks that his medications may be at play with his absence spells or near syncope episodes. This episode this weekend where he was in his chair and not able to wake himself was more like a cardiovascular event with patient aware of what was going on but not able to wake himself up. This is what we are determining syncope. He is not falling with these spells. Review of Systems Review of Systems 13 point review of systems otherwise unrevealing or as per HPI and ED reports. [facility] Medical History Bipolar II disorder (Acute) Colon polyp (Acute) Erectile dysfunction (Acute) Essential (primary) hypertension (Acute) Homelessness (Acute) Insomnia (Acute) Knee pain (Acute) Major depressive disorder (Acute) Nocturia (Acute) Osteoarthritis of knees, bilateral (Acute) Sleep apnea (Acute) Anxiety (Chronic) Depression (Chronic) Nephrolithiasis (Chronic) Obesity (Chronic) Meningitis (Resolved) Surgical History H/O lithotripsy (Acute) S/P carpal tunnel release (Acute) S/P cholecystectomy (Acute) Spermatocele (Acute) Swollen testicle (Acute) Family History Father Heart disease Depression Mother Schizophrenia Social History Smoking/Tobacco Use Status: Never Alcohol Intake: former Drug use: Never Substance use type: does not use Household members: spouse Housing: apartment Number of Children: 3 current occupation: Disabled. Former [employer]. Do you feel safe at home: Yes Do you feel safe in your relationship?: Yes Meds Home Medications Medication Instructions Recorded Confirmed Type Chlor Tab 1 tab PO QAM 05/14/18 02/09/19 History Ibuprofen [Ibuprofen Ib] 1 tab PO DIRECTED 05/14/18 02/09/19 History bupropion HCl 300 mg PO DAILY 05/14/18 02/09/19 History lisinopril 5 mg PO DAILY 05/14/18 02/09/19 History melatonin 20 mg PO HS 05/14/18 02/09/19 History methocarbamol 750 mg PO TID 05/14/18 02/09/19 History buspirone 10 mg PO BID 10/24/18 02/09/19 History hydrocodone bitartrate 10 mg PO Q4H PRN PRN 10/24/18 02/09/19 History gabapentin 300 mg capsule 600 mg PO DIRECTED 11/20/18 02/09/19 History tamsulosin 0.4 mg capsule 0.4 mg PO DAILY #180 tab-cap 11/20/18 02/09/19 Rx acetaminophen 500 mg tablet 1,500 mg PO DAILY tab 01/15/19 02/09/19 History furosemide 20 mg tablet 20 mg PO DAILY 01/15/19 02/09/19 History trazodone 50 mg tablet 200 mg PO HS tab 01/15/19 02/09/19 History finasteride 5 mg PO HS 02/09/19 02/09/19 History Allergies Allergy/AdvReac Type Severity Reaction Status Date / Time shrimp Allergy Intermediate Skin Rash Unverified 02/09/19 19:54 amlodipine Allergy Unknown Verified 02/09/19 19:54 zolpidem Allergy Unknown Verified 02/09/19 19:54 Exam Narrative Exam Narrative: General: The patient is very pleasant, obese gentleman who appears appropriate for his age. He is in no acute distress and alert and oriented x3. HEENT: Normocephalic with eyes normal having pupils equal reactive light symmetrically, extraocular movement intact and sclera anicteric. Ears normal. Oropharynx with moist, pink mucosa. Patient does have a CPAP device over his face which was removed during our conversation and exam. Neck: Supple without JVD. Lungs: Clear to auscultation and percussion. Heart: Regular rate and rhythm without murmurs or gallops appreciated. Abdomen: Obese contour, soft and nontender without palpable hepatomegaly. Genitalia rectal: Not examined. Extremities: Nonpitting edema without cyanosis or clubbing. He does have severe arthritic changes of his knees with the right worse than left. Neuro: Cranial nerves II through XII grossly intact. No focalizing motor deficits and reflexes physiologic and symmetrical. No Babinski's. No tremors. Psych: Normal thought processes, remote and recent memory intact. Patient affect is normal. Results Imaging Imaging Studies: EXAM: CT Head Without Contrast EXAM DATE/TIME: 02/09/2019 3:29 PM CLINICAL HISTORY: 53 years old, male; Signs and symptoms; Dizziness and other: Fatigue TECHNIQUE: Imaging protocol: Axial computed tomography images of the head without contrast. Coronal and sagittal reformatted images were created and reviewed. COMPARISON: MRI BRAIN W/WO 01/21/2019 8:59 AM FINDINGS: Brain: No extra-axial fluid collections. No evidence of acute intracranial hemorrhage. No evidence of acute or subacute intracranial ischemia/infarct. No intracranial mass lesions. Midline shift: No midline shift or herniation. Ventricles: Ventricles normal. Bones/joints: The calvarium and visualized facial bones are intact. Sinuses: Mucosal thickening in the ethmoid air cells and to a lesser degree frontal sinuses consistent with chronic sinus inflammatory disease. No fluid levels. Mastoid air cells: Visualized mastoid air cells are clear. Orbits: Orbital contents demonstrate no evidence of acute abnormality. Soft tissues: The scalp and visualized soft tissues are unremarkable. Vasculature: Mild atherosclerotic calcific plaque is identified in the visualized distal ICA segments . IMPRESSION: 1. No acute intracranial process. 2. Evidence of chronic sinus inflammatory disease involving primarily the ethmoid air cell distributions. Dictated and Authenticated by: Wojciech Lewis MD. EXAM: XR Chest, 2 Views EXAM DATE/TIME: 02/09/2019 4:44 PM CLINICAL HISTORY: 53 years old, male; Signs and symptoms; Shortness of breath and other: blackouts, dizziness TECHNIQUE: Imaging protocol: XR of the chest, 2 views. COMPARISON: No relevant prior studies available. FINDINGS: Lungs: Lung kc are clear. No infiltrates. Pleural space: No pleural effusion. No pneumothorax. Heart/Mediastinum: Heart size normal. No mediastinal widening. Pulmonary vaculature normal. No tracheal shift. Bones/joints: No acute osseous abnormalities are identified. IMPRESSION: No acute thoracic process. Dictated and Authenticated by: Wojciech Lewis MD. Labs : 02/09/19 15:30 02/09/19 15:30 Laboratory Results - last 24 hr 02/09/19 02/09/19 02/09/19 15:30 15:30 15:30 WBC 9.05 RBC 5.31 Hgb 16.3 Hct 49.7 MCV 93.6 MCH 30.7 MCHC 32.8 RDW 13.5 Plt Count 216 MPV 8.7 Immature Gran % 0.2 Neutrophils % 59.3 Lymphocytes % 29.1 Monocytes % 7.6 Eosinophils % 3.5 Basophils % 0.3 Absolute Neutrophils 5.36 Absolute Lymphocytes 2.63 Absolute Monocytes 0.69 Absolute Eosinophils 0.32 Absolute Basophils 0.03 PT 9.8 INR 1.0 APTT 22.0 D-Dimer 389 Sodium 140 Potassium 3.8 Chloride 103 Carbon Dioxide 26.4 Anion Gap 10.6 BUN 18 Creatinine 1.32 H Estimated GFR/1.73 m2 56.31 Glucose 111 H Calcium 9.1 Total Bilirubin 0.3 AST 15 ALT 28 Alkaline Phosphatase 84 Troponin I < 0.02 NT-Pro-B Natriuret Pep 40 Total Protein 7.7 Albumin 3.5 TSH 5.61 H Free T4 0.77 Last Vital Signs Temp 26.6 C L 02/09/19 15:15 Pulse 76 02/09/19 17:31 Resp 16 02/09/19 17:40 BP 117/66 02/09/19 17:31 Pulse Ox 94 L 02/09/19 17:40
[2019-02-09 20:50] LABS: Magnesium 1.7 mg/dL (1.8-2.4)
[2019-02-09 21:04] LABS: Troponin I < 0.02 ng/mL (0.00-0.06)
[2019-02-09] MEDS: busPIRone 5 MG TAB 10 MG PO (21:47)
[2019-02-09] MEDS: Finasteride 5 MG TAB PO (21:48)
[2019-02-09] MEDS: Enoxaparin 40 MG/0.4 ML SYR SC (21:48)
[2019-02-09] MEDS: Gabapentin 300 MG CAP 900 MG PO (21:49)
[2019-02-09] MEDS: traZODone 50 MG TAB 200 MG PO (21:50)
[2019-02-09] MEDS: Melatonin 3 MG TAB 9 MG PO (21:50)
[2019-02-09] MEDS: Methocarbamol 750 MG TAB PO (21:52)
[2019-02-09] MEDS: Normal Saline Flush 10 ML SYR IVP (22:02)
[2019-02-10] VITALS (51 sets, daily range): BP systolic 119–148; BP diastolic 67–101; PULSE 62–115; RESP 11–33; TEMP 36.2–36.7; O2SAT 95–98
[2019-02-10 00:06] LABS: Troponin I < 0.02 ng/mL (0.00-0.06)
[2019-02-10 06:37] LABS: HCT 47.9 % (40.0-50.0); HGB 15.9 g/dL (13.5-17.5); Mean Corp. HGB Concentration 33.2 g/dL (32.0-36.0); Mean Corpuscular Hemoglobin 31.1 pg (27.0-33.0); Mean Corpuscular Volume 93.6 fL (80-95); Mean Platelet Volume 8.7 fL (8.0-11.0); Platelet Count 214 x1000/uL (130-400); RBC 5.12 m/cumm (4.50-6.00); RBC Distribution Width 13.9 % (11.8-14.1); White Blood Cell Count 10.18 k/cumm (4.4-10.8)
[2019-02-10 06:56] LABS: ALT 27 U/L (12-78); AST 16 U/L (15-37); Albumin 3.1 g/dL (3.4-5.0); Alkaline Phosphatase 72 U/L (46-116); Anion Gap 8.1 mmol/L (3-11); BUN 17 mg/dL (7-18); Bilirubin, Total 0.4 mg/dL (0.2-1.0); CO2 27.9 mmol/L (21.0-32.0); CREATININE 1.17 mg/dL (0.70-1.30); Calcium 9.1 mg/dL (8.5-10.1); Chloride 103 mmol/L (98-107); Glucose 90 mg/dL (70-100); Sodium 139 mmol/L (136-145); Total Protein 6.9 g/dL (6.4-8.2)
--- NOTE | 2019-02-10 08:28 | W.PM.PROGNOT ---
Date of Service Date of service: 02/10/19 Time of Service: 08:28 Subjective Interval history since last seen: No chest pain here. No arrhythmic events. Had an uneventful night. Thinks his fading spells are associated with the increase in his flomax dose. He is now on his old dose. None of these spells here. Objective Objective Clinical Data: Abnormal lab results 02/09/19 02/09/19 02/10/19 Range/Units 15:30 20:25 06:20 Creatinine 1.32 H (0.70-1.30) mg/dL Glucose 111 H (70-100) mg/dL Magnesium 1.7 L (1.8-2.4) mg/dL Albumin 3.1 L (3.4-5.0) g/dL TSH 5.61 H (0.358-3.74) uIU/mL Vital Signs Temperature 36.2 C L 02/10/19 03:20 Temperature Source Temporal Artery Scan 02/10/19 03:20 Pulse 66 02/10/19 04:01 Pulse Rhythm Regular 02/10/19 03:20 Pulse 71 02/10/19 06:00 Respiratory Rate 16 02/10/19 06:00 Respiratory Effort 02/10/19 03:20 Respiratory Depth Normal 02/10/19 03:20 Respiratory Pattern Normal 02/10/19 03:20 Blood Pressure 124/67 02/10/19 04:01 Blood Pressure Mean 78 02/10/19 04:01 Blood Pressure Position Supine 02/09/19 20:10 Pulse Oximetry 96 02/10/19 06:00 Oxygen Delivery Method Room Air 02/10/19 03:20 Oxygen Flow Rate 0 02/10/19 03:20 Pain Level 0 02/10/19 03:20 Comment 02/10/19 03:20 Intake & Output 02/09/19 02/09/19 02/10/19 11:59 23:59 11:59 Intake Total Output Total 250 / 250 925 / 925 Balance -250 / -250 -915 / -915 Weight 168.5 kg Intake: IV Output: Urine 250 / 250 725 / 725 Stool 200 / 200 Other: Urine Color Yellow Yellow Urine Appearance Clear Clear Urine Odor Normal None Comment urintates frequently overnight and also t/o day time with lasix use mixed with stool Stool Size Small Stool Characteristics Formed Liquid Voiding Methods Urinal Urinal Laboratory Results WBC 10.18 k/cumm (4.4-10.8) 02/10/19 06:20 RBC 5.12 m/cumm (4.50-6.00) 02/10/19 06:20 Hgb 15.9 g/dL (13.5-17.5) 02/10/19 06:20 Hct 47.9 % (40.0-50.0) 02/10/19 06:20 MCV 93.6 fL (80-95) 02/10/19 06:20 MCH 31.1 pg (27.0-33.0) 02/10/19 06:20 MCHC 33.2 g/dL (32.0-36.0) 02/10/19 06:20 RDW 13.9 % (11.8-14.1) 02/10/19 06:20 Plt Count 214 x1000/uL (130-400) 02/10/19 06:20 MPV 8.7 fL (8.0-11.0) 02/10/19 06:20 Immature Gran % 0.2 02/09/19 15:30 Neutrophils % 59.3 02/09/19 15:30 Lymphocytes % 29.1 02/09/19 15:30 Monocytes % 7.6 02/09/19 15:30 Eosinophils % 3.5 02/09/19 15:30 Basophils % 0.3 02/09/19 15:30 Absolute Neutrophils 5.36 k/cumm (1.2-6.7) 02/09/19 15:30 Absolute Lymphocytes 2.63 k/cumm (1.2-3.4) 02/09/19 15:30 Absolute Monocytes 0.69 k/cumm (0.11-0.7) 02/09/19 15:30 Absolute Eosinophils 0.32 k/cumm (0.0-0.7) 02/09/19 15:30 Absolute Basophils 0.03 k/cumm (0.0-0.2) 02/09/19 15:30 PT 9.8 sec (9.3-11.0) 02/09/19 15:30 INR 1.0 (0.9-1.1) 02/09/19 15:30 APTT 22.0 sec (21.0-31.4) 02/09/19 15:30 D-Dimer 389 ng/mlFEU (<500) 02/09/19 15:30 Sodium 139 mmol/L (136-145) 02/10/19 06:20 Potassium 4.0 mmol/L (3.5-5.1) 02/10/19 06:20 Chloride 103 mmol/L (98-107) 02/10/19 06:20 Carbon Dioxide 27.9 mmol/L (21.0-32.0) 02/10/19 06:20 Anion Gap 8.1 mmol/L (3-11) 02/10/19 06:20 BUN 17 mg/dL (7-18) 02/10/19 06:20 Creatinine 1.17 mg/dL (0.70-1.30) 02/10/19 06:20 Estimated GFR/1.73 m2 >= 60.00 (mL/min/1.73m2) 02/10/19 06:20 Glucose 90 mg/dL (70-100) 02/10/19 06:20 Calcium 9.1 mg/dL (8.5-10.1) 02/10/19 06:20 Magnesium 1.7 mg/dL (1.8-2.4) L 02/09/19 20:25 Total Bilirubin 0.4 mg/dL (0.2-1.0) 02/10/19 06:20 AST 16 U/L (15-37) 02/10/19 06:20 ALT 27 U/L (12-78) 02/10/19 06:20 Alkaline Phosphatase 72 U/L (46-116) 02/10/19 06:20 Troponin I < 0.02 ng/mL (0.00-0.06) 02/09/19 23:30 NT-Pro-B Natriuret Pep 40 pg/mL (-299) 02/09/19 15:30 Total Protein 6.9 g/dL (6.4-8.2) 02/10/19 06:20 Albumin 3.1 g/dL (3.4-5.0) L 02/10/19 06:20 TSH 5.61 uIU/mL (0.358-3.74) H 02/09/19 15:30 Free T4 0.77 ng/dL (0.76-1.46) 02/09/19 15:30
[2019-02-10] MEDS: MAGNESIUM SULFATE 1 GM/100 ML BAG IVPB ×2 (09:09→12:13)
[2019-02-10] MEDS: Magnesium Oxide 400 MG TAB PO (09:11)
[2019-02-10] MEDS: Gabapentin 400 MG CAP 1200 MG PO (09:11)
[2019-02-10] MEDS: buPROPion-XL 150 MG TABCR 300 MG PO (09:11)
[2019-02-10] MEDS: Lisinopril 5 MG TAB PO (09:11)
[2019-02-10] MEDS: Methocarbamol 750 MG TAB PO ×2 (09:12→14:09)
[2019-02-10] MEDS: Normal Saline Flush 10 ML SYR IVP (09:12)
[2019-02-10] MEDS: Tamsulosin 0.4 MG CAPCR PO (09:12)
[2019-02-10] MEDS: busPIRone 5 MG TAB 10 MG PO (09:12)
[2019-02-10 11:07] LABS: Magnesium 1.6 mg/dL (1.8-2.4)
[2019-02-10 13:04] LABS: BE 3.8 mmol/L (-3-3); HCO3 28 mmol/L (22-28); pCO2 43 mmHg (34-47); pH 7.42 (7.35-7.45); pO2 76 mmHg (83-108); sO2 95 % (94-98); tCO2 24 mmol/L (22-29)
[2019-02-10 13:06] LABS: FIO2 R/A %; Site Right Radial
--- NOTE | 2019-02-10 13:49 | PDOC.CMIN ---
- If Service Date Differs Date of service: 02/10/19 Time of Service: 13:49 Care Management Initial Assess REASON FOR HOSPITALIZATION:: Atypical chest pain PAST MEDICAL HISTORY/PAST SURGICAL HISTORY:: Bipolar II disorder (Acute). Colon polyp (Acute). Erectile dysfunction (Acute). Essential (primary) hypertension (Acute). Insomnia (Acute). Knee pain (Acute). Major depressive disorder (Acute). Nocturia (Acute). Osteoarthritis of knees, bilateral (Acute). Sleep apnea (Acute). Anxiety (Chronic). Depression (Chronic). Nephrolithiasis (Chronic). Obesity (Chronic). Meningitis (Resolved. Surgical HX: H/O lithotripsy (Acute). S/P carpal tunnel release (Acute). S/P cholecystectomy (Acute). Spermatocele (Acute). Swollen testicle (Acute) PREVIOUS FUNCTIONAL STATUS/SOCIAL/FAMILY SUPPORTS:: Anup lives with his spouse in [place], [place]. He states that he has three children one lives locally. He describes his spouse Yina Duffy as his main support and his best friend Ayse. He was in the [employer] for 7 years and is a disabled . He did work at [employer] for 21 years until he was no longer able to stand due to knee pain. He has been working with the [employer] to lose weight and is planning to have a bilat knee replacements in the future. Anup is indepedent with ADL's he does have a CPAP at night. CURRENT FUNCTIONAL STATUS:: Anup is sitting up on the side of the bed when CM into complete assessment. He is engaged with CM during conversation. He states that he has good support through his [place] provider and services. He shares recent stressors openly related to his family. He states he never throught that his medicaitons may interact with each other and feels this may have been causing his symptoms. He states he has been having the symptoms since he started the Flomax in July of last year. He states he does have a history of sleep apnea and has a CPAP at home. ADVANCE DIRECTIVES:: None on file he states he does have one and will file it. Has patient been provided with information about the portal?: Yes Did the patient sign up for the portal?: No CODE STATUS:: Full Code INSURANCE COVERAGE / FINANCIAL ISSUES:: [place], [facility] CURRENT HOME/COMMUNITY SERVICES/EQUIPMENT:: CPAP through the [place] PRIMARY CARE PHYSICIAN:: KEANU Castaneda [place] POTENTIAL DISCHARGE NEEDS:: Follow up with PCP as directed. PATIENT/FAMILY EDUCATION NEEDS:: Discharge education, limitations and follow up plan of care ask me three and self management. ANTICIPATED BARRIERS TO DISCHARGE:: None identified. TRANSPORTATION:: Via private car with spouse at time of discharge. PLAN:: Anup remains in the ICU anticipate he will be discharged once he is medically cleared. He will not need any addtional services at time of discharge and continue to follow up with PCP and neurology after discharge. CM will continue to provide support.
--- NOTE | 2019-02-10 14:25 | CHAPLAIN ---
Anup was resting in bed and visiting with his when I stopped in. 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 They are childhood friends and work in the yarsanism together. Anup said he believes he is dealing with problem of the combination of medicines he is taking, and knows that's being investigated for him. He was very complimentary of the nursing staff.
--- NOTE | 2019-02-10 14:49 | INITIAL_ITS ---
- If Service Date Differs Date of service: 02/10/19 Time of Service: 13:49 Care Management Initial Assess REASON FOR HOSPITALIZATION:: Atypical chest pain PAST MEDICAL HISTORY/PAST SURGICAL HISTORY:: Bipolar II disorder (Acute). Colon polyp (Acute). Erectile dysfunction (Acute). Essential (primary) hypertension (Acute). Insomnia (Acute). Knee pain (Acute). Major depressive disorder (Acute). Nocturia (Acute). Osteoarthritis of knees, bilateral (Acute). Sleep apnea (Acute). Anxiety (Chronic). Depression (Chronic). Nephrolithiasis (Chronic). Obesity (Chronic). Meningitis (Resolved. Surgical HX: H/O lithotripsy (Acute). S/P carpal tunnel release (Acute). S/P cholecystectomy (Acute). Spermatocele (Acute). Swollen testicle (Acute) PREVIOUS FUNCTIONAL STATUS/SOCIAL/FAMILY SUPPORTS:: Anup lives with his spou in [place], [place]. He states that he has three children one lives locally. He describes his spouse Yina Duffy as his main support and his best friend Ayse. He was in the [employer] for 7 years and is a disabled . He did work at [employer] for 21 years until he was no longer able to stand due to knee pain. He has been working with the [employer] to lose weight and is planning to have a bilat knee replacements in the future. Anup is indepedent with ADL's he does have a CPAP at night. CURRENT FUNCTIONAL STATUS:: Anup is sitting up on the side of the bed when CM into complete assessment. He is engaged with CM during conversation. He states that he has good support through his [place] provider and services. He shares recent stressors openly related to his family. He states he never throught that his medicaitons may interact with each other and feels this may have been causing his symptoms. He states he has been having the symptoms since he started the Flomax in July of last year. He states he does have a history of sleep apnea and has a CPAP at home. ADVANCE DIRECTIVES:: None on file he states he does have one and will file it. Has patient been provided with information about the portal?: Yes Did the patient sign up for the portal?: No CODE STATUS:: Full Code INSURANCE COVERAGE / FINANCIAL ISSUES:: [place], [facility] CURRENT HOME/COMMUNITY SERVICES/EQUIPMENT:: [place]AP through the [place] PR[facility] POTENTIAL DISCHARGE NEEDS:: Follow up with PCP as directed. PATIENT/FAMILY EDUCATION NEEDS:: Discharge education, limitations and follow up plan of care ask me three and self management. ANTICIPATED BARRIERS TO DISCHARGE:: None identified. TRANSPORTATION:: Via private car with spouse at time of discharge. PLAN:: Anup remains in the ICU anticipate he will be discharged once he is medically cleared. He will not need any addtional services at time of discharge and continue to follow up with PCP and neurology after discharge. CM will continue to provide support.
--- NOTE | 2019-02-10 16:39 | W.PM.DS.N ---
Date of service: 02/10/19 Time of Service: 16:39 DS: Diagnosis Discharge Diagnosis (1) Atypical chest pain: Status: Acute (2) Syncope: Status: Chronic Asessment and Plan: black out episodes - it is not clear if they are truly syncopal. Discharge Plan Disposition Patient Disposition: HOME Condition: Stable Discharge Details Reason For Visit: ATYPICAL CHEST PAIN,SYNCOPE Admit Date/Time: 02/09/19 19:06 Admit Provider: Kris Shrestha Attending Provider: Kris Shrestha Primary Care Provider: Kaelyn Be Hospital Course Hospital Course: Mr Dorman is a 53 year old male with PMHx of Bipolar II d/o, Hypertension, ANGEL, BPH, on multiple medical conditions, observed overnight on [facility] hospitalist service from 02/09/19 to 02/10/19 for an episode of chest tightness. This chest tightness seemed to correlate in the patient's mind with feeling like he had a cold. The patient had a negative ischemic workup at [facility] consisting of serial troponins, EKG's, and telemetry. He has not had a stress test in the past and would like to get this done as outpatient. Patient is also getting discharged with a prescription for an albuterol inhaler to see if it helps if he has another episode of chest tightness again. Finally, the patient verbalizes that his black outs started happening after his dose of flomax was doubled - he would like to try to decrease it to 0.4 mg PO daily, and we spoke about him taking this at night to see if it helps with nocturia. He did have an ABG done to ensure that his blackouts weren't episodes of hypercapnea that give him transient encephalopathy. At least, at the time that the ABG was done, there was no evidence of clinically significant hypercapnea. He has scheduled follow up with neurology. He will have to follow up with urology as well if his urinary symptoms worsen. He is medically stable for discharge. Home Meds and New Rx's Prescriptions: New aspirin 81 mg tablet,chewable 81 mg PO DAILY Qty: 30 RF: 0 albuterol sulfate 90 mcg/actuation HFA aerosol inhaler 2 puff IH Q6H PRN (Reason: shortness of breath) Qty: 8.5 RF: 0 Continued furosemide 20 mg tablet 20 mg PO DAILY RF: 0 gabapentin 300 mg capsule 600 mg PO DIRECTED RF: 0 trazodone 50 mg tablet 200 mg PO HS RF: 0 buspirone 10 mg Tablet 10 mg PO BID RF: 0 hydrocodone bitartrate 10 mg Capsule, Oral Only, Er 12hr 10 mg PO Q4H PRN PRNRF: 0 bupropion HCl 300 MG tablet extended release 24 hr 300 mg PO DAILY RF: 0 methocarbamol 750 MG tablet 750 mg PO TID RF: 0 lisinopril 5 MG tablet 5 mg PO DAILY RF: 0 Chlor Tab 1 tab PO QAM RF: 0 melatonin 10 MG tablet 20 mg PO HS RF: 0 Ibuprofen [Ibuprofen Ib] 200 MG tablet 1 tab PO DIRECTED RF: 0 acetaminophen [Tylenol Extra Strength] 500 mg tablet 1,500 mg PO DAILY RF: 0 finasteride 5 mg Tablet 5 mg PO HS RF: 0 Changed tamsulosin 0.4 mg capsule 0.4 mg PO .AFTER DINNER Qty: 180 RF: 3 Discharge Instructions Instructions: Chest Pain (DC) Additional Instructions: Return to the hospital with any fever, bleeding, chest pain, or shortness of breath. Follow up with your PCP and for your stress test. Activity:: Activity as Tolerated Equipment/Supplies:: No Equipment Needed Diet:: Low Sodium Discharge Orders Discharge Orders: Discharge Order (Routine); Ordered 02/10/19 Ordered By: Mai Waldron Other Ambulatory Orders: [facility] MPI rest & stress grp (Routine) Timeframe: 1 Week Facility: [facility] - Location: CARDIAC LAB Ordered By: Mai Waldron Exam Narrative Exam Narrative: General: Obese male, very animated, NAD, A&Ox3 HEENT: EOMI, MMM Heart: RRR, no m/r/g Lungs: CTAB GI: abdomen is soft, nontender, nondistended Extremities: no e/c/c BLE's DS: Data Vitals/I&O Vitals and I&O: Vital Signs Temperature 36.7 C 02/10/19 07:30 Temperature Source Temporal Artery Scan 02/10/19 07:30 Pulse 75 02/10/19 12:56 Pulse Rhythm Regular 02/10/19 07:30 Pulse 82 02/10/19 12:56 Respiratory Rate 12 02/10/19 12:56 Respiratory Effort Non-Labored 02/10/19 07:30 Respiratory Depth Normal 02/10/19 07:30 Respiratory Pattern Normal 02/10/19 07:30 Blood Pressure 137/101 H 02/10/19 12:56 Blood Pressure Mean 108 02/10/19 12:56 Blood Pressure Position Supine 02/09/19 20:10 Pulse Oximetry 95 02/10/19 07:30 Oxygen Delivery Method Room Air 02/10/19 07:30 Oxygen Flow Rate 0 02/10/19 07:30 Pain Level 0 02/10/19 03:20 Comment 02/10/19 03:20 Intake & Output 02/09/19 02/10/19 02/10/19 23:59 11:59 23:59 Intake Total 590 / 590 Output Total 250 / 250 925 / 925 Balance -250 / -250 -335 / -335 Weight 168.5 kg Intake: IV 110 / 110 Oral 480 / 480 Output: Urine 250 / 250 725 / 725 Stool 200 / 200 Other: Urine Color Yellow Yellow Urine Appearance Clear Clear Urine Odor Normal None Comment urintates frequently overnight and also t/o day time with lasix use mixed with stool Stool Size Small Stool Characteristics Formed Liquid Voiding Methods Urinal Urinal Completed studies during hospitalization [Text1]: CT head w/o contrast: No acute abnormality is seen. Note is made of findings consistent with chronic sinusitis involving primarily the ethmoid sinuses. CXR PA and lateral: Normal chest. No evidence of acute cardiopulmonary disease. EKG 02/09/19: HR 93, sinus tachycardia, no acute ischemia EKG 02/10/19: HR 72, NSR, no acute ischemia Labs on day of discharge: Labs from last 24 hours 02/10/19 02/10/19 02/10/19 13:05 06:20 06:20 WBC 10.18 RBC 5.12 Hgb 15.9 Hct 47.9 MCV 93.6 MCH 31.1 MCHC 33.2 RDW 13.9 Plt Count 214 MPV 8.7 Sample Site Right radial pCO2 43 pO2 76 L O2 Saturation 95 ABG pH 7.42 ABG HCO3 28 ABG Total CO2 24 ABG Base Excess 3.8 H FiO2 R/a Sodium 139 Potassium 4.0 Chloride 103 Carbon Dioxide 27.9 Anion Gap 8.1 BUN 17 Creatinine 1.17 Estimated GFR/1.73 m2 >= 60.00 Glucose 90 Calcium 9.1 Magnesium 1.6 L Total Bilirubin 0.4 AST 16 ALT 27 Alkaline Phosphatase 72 Troponin I Total Protein 6.9 Albumin 3.1 L Free T4 02/09/19 02/09/19 02/09/19 23:30 20:25 15:30 WBC RBC Hgb Hct MCV MCH MCHC RDW Plt Count MPV Sample Site pCO2 pO2 O2 Saturation ABG pH ABG HCO3 ABG Total CO2 ABG Base Excess FiO2 Sodium Potassium Chloride Carbon Dioxide Anion Gap BUN Creatinine Estimated GFR/1.73 m2 Glucose Calcium Magnesium 1.7 L Total Bilirubin AST ALT Alkaline Phosphatase Troponin I < 0.02 < 0.02 Total Protein Albumin Free T4 0.77 [facility] Medical History Bipolar II disorder (Acute) Colon polyp (Acute) Erectile dysfunction (Acute) Essential (primary) hypertension (Acute) Homelessness (Acute) Insomnia (Acute) Knee pain (Acute) Major depressive disorder (Acute) Nocturia (Acute) Osteoarthritis of knees, bilateral (Acute) Sleep apnea (Acute) Anxiety (Chronic) Depression (Chronic) Nephrolithiasis (Chronic) Obesity (Chronic) Meningitis (Resolved) Surgical History H/O lithotripsy (Acute) S/P carpal tunnel release (Acute) S/P cholecystectomy (Acute) Spermatocele (Acute) Swollen testicle (Acute) Family History Father Heart disease Depression Mother Schizophrenia Social History Smoking/Tobacco Use Status: Never Alcohol Intake: former Drug use: Never Substance use type: does not use Household members: spouse Housing: apartment Number of Children: 3 current occupation: Disabled. [employer]. Do you feel safe at home: Yes Do you feel safe in your relationship?: Yes
== END 2019-02-10 17:37 | disposition home or self-care (01) ==
LOC: ER 19:06 → ICU 20:14
PROVIDERS: Admitting Provider Family Medicine; Emergency Provider Student in an Organized Health Care Education/Training Program; Visit Provider Internal Medicine
DX: R07.89 Other chest pain (principal); R55 Syncope and collapse; I10 Essential (primary) hypertension; N40.0 Benign prostatic hyperplasia without lower urinary tract symptoms
CPT/HCPCS: 36415; 80053; 82805; 85027; 93005; 99217; 99223; 99285; J1650; 36600; 70450; 71046; 83735; 83880; 84439; 84443; 84484; 85025; 85379; 85610; 85730; 93010; 99220; J3475

== ENCOUNTER 2019-06-16 21:19 | Emergency (ER) | payer MEDICAID, SELFPAY ==
[2019-06-16 21:27] VITALS: BP 161/91; PULSE 75; RESP 18; TEMP 36.9; O2SAT 99
--- NOTE | 2019-06-16 22:25 | ED.GENADUL_ITS ---
Discharge Plan Disposition Patient Disposition: HOME Discharge Details Chief Complaint: Sorethroat Clinical Impression: Sinusitis Primary Care Provider: Kaelyn Be ED Provider: Angela Blackwell Home Meds and New Rx's Prescriptions: New amoxicillin-pot clavulanate [Augmentin] 875-125 mg tablet 1 tab PO BID Qty: 20 RF: 0 Continued vitamin B complex [B Complex-Vitamin B12] tablet 1 tab PO DAILY RF: 0 furosemide 20 mg tablet 20 mg PO DAILY RF: 0 gabapentin 300 mg capsule 600 mg PO DIRECTED RF: 0 trazodone 50 mg tablet 200 mg PO HS RF: 0 buspirone 10 mg Tablet 10 mg PO BID RF: 0 hydrocodone bitartrate 10 mg Capsule, Oral Only, Er 12hr 10 mg PO Q4H PRN PRNRF: 0 bupropion HCl 300 MG tablet extended release 24 hr 300 mg PO DAILY RF: 0 methocarbamol 750 MG tablet 750 mg PO TID RF: 0 lisinopril 5 MG tablet 5 mg PO DAILY RF: 0 Chlor Tab 1 tab PO QAM RF: 0 melatonin 10 MG tablet 20 mg PO HS RF: 0 Ibuprofen [Ibuprofen Ib] 200 MG tablet 4 tab PO DIRECTED RF: 0 acetaminophen [Tylenol Extra Strength] 500 mg tablet 1,500 mg PO DAILY RF: 0 aspirin 81 mg tablet,chewable 81 mg PO DAILY Qty: 30 RF: 0 albuterol sulfate 90 mcg/actuation HFA aerosol inhaler 2 puff IH Q6H PRN (Reason: shortness of breath) Qty: 8.5 RF: 0 Discharge Instructions Instructions: Sinusitis (ED) Additional Instructions: Push fluids by mouth. Use nasal saline rinses 3 times a day, 5 minutes after using nasal saline rinse use Flonase [id number] in the morning Use antibiotic as prescribed. Tylenol for shortness of needed. Follow-up with your primary care doctor if not improved in the next 3 to 5 days. Next and return for any worsening or concerns sooner if needed Medical Decision Making 2 weeks of nasal congestion possibly related to seasonal allergies which she is experienced in the past now having increase in lymph node swelling in conjunction with increasing sore throat and mild ill feeling. Patient likely experiencing sinusitis at this time. Antibiotics provided. Patient agrees with plan of care. Nothing to indicate peritonsillar abscess at this time. HPI General Date/Time Provider Initiated Documentation: 06/16/19 22:16 . HPI Narrative: Patient presents for 2 weeks of illness. Patient reports sore throat for the last few weeks primarily for the last few weeks has been experiencing nasal congestion and postnasal drip. Patient felt likely he was having seasonal allergies. Patient reports mild cough with postnasal drip. Patient reports sore throat is worsening now experiencing swollen lymph nodes in the neck. Patient reports congestion persists. Denies ear pain, headache or dizziness. Eating and drink without difficulty. No voice change or trismus. No abdominal complaints. Related Data Home Medications Medication Instructions Recorded Confirmed Chlor Tab 1 tab PO QAM 05/14/18 06/16/19 Ibuprofen [Ibuprofen Ib] 4 tab PO DIRECTED 05/14/18 06/16/19 bupropion HCl 300 mg PO DAILY 05/14/18 06/16/19 lisinopril 5 mg PO DAILY 05/14/18 06/16/19 melatonin 20 mg PO HS 05/14/18 06/16/19 methocarbamol 750 mg PO TID 05/14/18 06/16/19 buspirone 10 mg PO BID 10/24/18 06/16/19 hydrocodone bitartrate 10 mg PO Q4H PRN PRN 10/24/18 06/16/19 gabapentin 300 mg capsule 600 mg PO DIRECTED 11/20/18 06/16/19 acetaminophen 500 mg tablet 1,500 mg PO DAILY tab 01/15/19 06/16/19 furosemide 20 mg tablet 20 mg PO DAILY 01/15/19 06/16/19 trazodone 50 mg tablet 200 mg PO HS tab 01/15/19 06/16/19 albuterol sulfate 2 puff IH Q6H PRN #8.5 gm 02/10/19 06/16/19 aspirin 81 mg PO DAILY #30 tab 02/10/19 06/16/19 vitamin B complex 1 tab PO DAILY 03/02/19 06/16/19 amoxicillin-pot clavulanate 1 tab PO BID #20 tab 06/16/19 [Augmentin] Previous Rx's Medication Instructions Recorded albuterol sulfate 2 puff IH Q6H PRN #8.5 gm 02/10/19 aspirin 81 mg PO DAILY #30 tab 02/10/19 amoxicillin-pot clavulanate 1 tab PO BID #20 tab 06/16/19 [Augmentin] Allergies Allergy/AdvReac Type Severity Reaction Status Date / Time shrimp Allergy Intermediate Skin Rash Unverified 06/16/19 21:29 amlodipine Allergy Unknown Verified 06/16/19 21:29 zolpidem Allergy Unknown Verified 06/16/19 21:29 General Stated Complaint: Sorethroat HAYLEY: 4 Review of Systems Review of Systems Narrative: CONSTITUTIONAL: The patient denies fevers, chills. EYES: Denies vision changes, blurry vision, or eye pain. ENT: Denies hearing changes, tinnitus, vertigo. Sore throat present without voice change or trismus CARDIAC: Denies chest pain, SOB. RESPIRATORY: Denies cough, sputum. Denies difficulty breathing. GASTROINTESTINAL: Denies abdominal pain, changes in bowel, vomiting or nausea. GENITOURINARY: Denies dysuria, or frequency of urination. MUSCULOSKELETAL: Denies Joint pain, gait changes. NEUROLOGIC: Denies headaches, Denies focal weakness. Denies numbness. INTEGUMENT: Denies rashes. PSYCHIATRIC: Denies behavior changes. Denies anxiety or depression. ENDOCRINOLOGY: Denies fatigue. PSYCHIATRY: Denies depression, agitation or anxiety [facility] Medical History Anxiety (Chronic) Bipolar II disorder (Acute) Colon polyp (Acute) Depression (Chronic) Erectile dysfunction (Acute) Essential (primary) hypertension (Acute) Homelessness (Acute) Insomnia (Acute) Knee pain (Acute) Major depressive disorder (Acute) Meningitis (Resolved) Nephrolithiasis (Chronic) Nocturia (Acute) Obesity (Chronic) Osteoarthritis of knees, bilateral (Acute) Sleep apnea (Acute) Surgical History H/O lithotripsy (Acute) S/P carpal tunnel release (Acute) S/P cholecystectomy (Acute) Spermatocele (Acute) Swollen testicle (Acute) strangulated Social History Smoking/Tobacco Use Status: Never Alcohol Intake: former Drug use: Never Substance use type: does not use Household members: spouse Housing: apartment Number of Children: 3 current occupation: Disabled. Former [employer]. Do you feel safe at home: Yes Do you feel safe in your relationship?: Yes Exam Narrative Exam Narrative: CONST: Healthy appearing patient, in no acute distress. Well hydrated. Alert and alert. HENMT: Head nomocephalic, normal to inspection. Atraumatic. Hearing grossly normal. Pharyngeal erythema with some mild cobblestoning present. Flushing to bilateral cheeks. No sinus pain with palpation. EYES: General normal appearance. Alignment normal. Eyelids normal. Conjunctiva normal. NECK: Normal visual inspection. FROM. Trachea midline. No Midline tenderness. Cervical lymphadenopathy present bilaterally CHEST: Normal insepection of the chest. RESP: Normal respiratory effort. Speaking full sentences. No cough. No audible wheezing. No retractions. Lungs are clear to auscultation. No wheezing CARDIO: No JVD. MUSCULOSKELETAL: Normal Gait. FROM of all extremities. SKIN: Normal. Dry. No rashes. NEURO: Alert and awake. Speech clear. PSYCH: Normal affect. Cooperative. Course Vital Signs Vital signs: Vital Signs Temperature 36.9 C 06/16/19 21:27 Pulse 75 06/16/19 21:27 Respiratory Rate 18 06/16/19 21:27 Blood Pressure 161/91 H 06/16/19 21:27 Pulse Oximetry 99 06/16/19 21:27 Temperature 36.9 C 06/16/19 21:27 Temperature Source Skin 06/16/19 21:27 Pulse 75 06/16/19 21:27 Respiratory Rate 18 06/16/19 21:27 Respiratory Effort Non-Labored 06/16/19 21:33 Blood Pressure 161/91 H 06/16/19 21:27 Blood Pressure Position Sitting 06/16/19 21:27 Pulse Oximetry 99 06/16/19 21:27 Oxygen Delivery Method Room Air 06/16/19 21:27 Oxygen Flow Rate 0 06/16/19 21:27 Pain Level 3 06/16/19 21:27
[2019-06-16] MEDS: Amoxicillin 875/Clav. 125 TAB PO (22:47)
[2019-06-16 22:52] VITALS: BP 178/99; PULSE 74; RESP 18; O2SAT 95
== END 2019-06-16 22:55 | disposition home or self-care (01) ==
PROVIDERS: Emergency Provider Physician Assistant
DX: J01.90 Acute sinusitis, unspecified (principal); I10 Essential (primary) hypertension
CPT/HCPCS: 99283

== ENCOUNTER 2020-04-28 22:45 | Emergency (ER) | payer MEDICAID, SELFPAY ==
[2020-04-28 22:38] VITALS: BP 129/110; PULSE 83; RESP 18; TEMP 36.4; O2SAT 99
[2020-04-28 22:44] VITALS: RESP 18
--- NOTE | 2020-04-28 22:49 | ED.GENADUL_ITS ---
Discharge Plan Disposition Patient Disposition: HOME Condition: Stable Discharge Details Chief Complaint: GenMedical Clinical Impression: Rectal discomfort Primary Care Provider: Kaelyn Be ED Provider: Crow Post Home Meds and New Rx's Prescriptions: Continued vitamin B complex [B Complex-Vitamin B12] tablet 1 tab QWEEK RF: 0 gabapentin 300 mg capsule 600 mg PO TID RF: 0 buspirone 10 mg Tablet 10 mg PO BID RF: 0 hydrocodone bitartrate 10 mg Capsule, Oral Only, Er 12hr 10 mg PO Q4H PRN PRNRF: 0 bupropion HCl 300 MG tablet extended release 24 hr 150 mg PO BID RF: 0 lisinopril 5 MG tablet 5 mg PO DAILY RF: 0 Chlor Tab 3 tab PO QAM RF: 0 acetaminophen [Tylenol Extra Strength] 500 mg tablet 650 mg PO BID PRN PRNRF: 0 Caltrate 600-D Plus Minerals 600 mg calcium- 800 unit-40 mg Tablet,Chewable 1 tab PO BID RF: 0 cyclobenzaprine 10 mg Tablet 10 mg PO TID RF: 0 Discharge Instructions Instructions: Rectal Prolapse (ED) Additional Instructions: No straining or bearing down. Please call your gastrointestinal surgeon tomorrow morning to discuss your symptoms. Given distance and travel restrictions, adrenal to follow-up with them tomorrow I recommend being seen locally by her general surgery team for reassessment. Return to the ER for any worsening or new concerning symptoms. Referrals: Arlin Zayas MD [ [facility] STAFF PHYSICIAN] - Medical Decision Making [id number]??54-year-old male presents 2 weeks status post uncomplicated gastric sleeve placement with no bowel movement over the past 3 days, tonight something protruding from his rectum and pain with attempted bowel movement after using stool softener suppository. Patient has lost a significant of weight over the past few months. Abdominal exam is benign. Of note, procedure was performed in [place]. He has quarantine and had negative COVID-19 testing. He is not considered a PUI at this time. --Patient felt the need to have a bowel movement here and did have a small loose brown bowel movement with no blood. He did feel as though something was again protruding from his rectum. I examined his rectum and there is no prolapse and no external hemorrhoids. I had the patient lie in left lateral decubitus position and performed a digital rectal exam. He did have a sensation of pressure during exam but no significant pain. I did not appreciate any internal hemorrhoids. There was palpable formed but loose stool at the tip of my fingers. Concern for potential intermittent rectal mucosal prolapse versus prolapsed internal hemorrhoids. Patient was advised no straining or bearing down. Plan will be to have him contact his gastrointestinal surgeon tomorrow morning and to likely follow-up as recommended with general surgery here for reexamination tomorrow. Patient was encouraged to return to the ER immediately for any worsening or new concerning symptoms. HPI General Mode of arrival: ambulatory . Date/Time Provider Initiated Documentation: 04/28/20 23:35 . Limitations to Documentation: no limitations . Information obtained by: patient . HPI Narrative: 54-year-old male with history of prior hemorrhoids, presents 2 weeks status post uncomplicated gastric sleeve placement with chief complaint of abnormal bowel movement. Patient notes he has not had a bowel movement in past 3 days. He used a rectal suppository stool softener and notes that attempted to have a bowel movement today. He states something protruding from his rectum and then retracted back up into his rectum. Patient notes discomfort in his rectum. On arrival with EMS, patient notes that he feels like he has to have a bowel movement. Related Data Home Medications Medication Instructions Recorded Confirmed Chlor Tab 3 tab PO QAM 05/14/18 04/28/20 bupropion HCl 150 mg PO BID 05/14/18 04/28/20 lisinopril 5 mg PO DAILY 05/14/18 04/28/20 buspirone 10 mg PO BID 10/24/18 04/28/20 hydrocodone bitartrate 10 mg PO Q4H PRN PRN 10/24/18 04/28/20 gabapentin 300 mg capsule 600 mg PO TID 11/20/18 04/28/20 acetaminophen 500 mg tablet 650 mg PO BID PRN PRN tab 01/15/19 04/28/20 vitamin B complex 1 tab QWEEK 03/02/19 04/28/20 Caltrate 600-D Plus Minerals 1 tab PO BID 04/28/20 04/28/20 cyclobenzaprine 10 mg PO TID 04/28/20 04/28/20 Allergies Allergy/AdvReac Type Severity Reaction Status Date / Time shrimp Allergy Intermediate Anaphylaxsi Unverified 04/28/20 23:34 s amlodipine Allergy Unknown Verified 04/28/20 23:34 zolpidem Allergy Unknown Verified 04/28/20 23:34 General Stated Complaint: GenMedical HAYLEY: 3 Review of Systems All systems reviewed & are unremarkable except as noted in HPI and below Constitutional Constitutional: Denies fever(s) Gastrointestinal Gastrointestinal: Reports as per HPI, Denies nausea and Denies vomiting PFSH Medical History Anxiety (Chronic) Bipolar II disorder (Acute) Colon polyp (Acute) Depression (Chronic) Erectile dysfunction (Acute) Essential (primary) hypertension (Acute) Homelessness (Acute) Insomnia (Acute) Knee pain (Acute) Major depressive disorder (Acute) Meningitis (Resolved) Nephrolithiasis (Chronic) Nocturia (Acute) Obesity (Chronic) Osteoarthritis of knees, bilateral (Acute) Sleep apnea (Acute) Surgical History H/O lithotripsy (Acute) S/P carpal tunnel release (Acute) S/P cholecystectomy (Acute) Spermatocele (Acute) Swollen testicle (Acute) strangulated Family History Father Heart disease Depression Mother Schizophrenia Social History Smoking/Tobacco Use Status: Never Alcohol Intake: former Drug use: Never Substance use type: does not use Household members: spouse Housing: apartment Number of Children: 3 current occupation: Disabled. Former [employer]. Do you feel safe at home: Yes Do you feel safe in your relationship?: Yes Exam Const General: cooperative and no acute distress HENMT Mouth: moist mucous membranes Eyes Conjunctivae: normal conjunctivae Sclera: normal sclerae Neck Neck: trachea midline Resp Auscultation: clear to auscultation bilaterally, no rales, no rhonchi and no wheezes Cardio Rate: regular rate and not tachycardic Rhythm: regular rhythm GI Palpation: soft, not firm, no guarding, no masses, not rigid and nontender Skin General skin exam: no rashes or lesions noted Neuro General: patient alert, patient awake and tone normal Extrem General: no edema Psych Appearance: grossly normal Mental Status: mental status grossly normal Course Vital Signs Vital signs: Vital Signs Temperature 36.4 C L 04/28/20 22:38 Pulse 83 04/28/20 22:38 Respiratory Rate 18 04/28/20 22:38 Pulse Oximetry 99 04/28/20 22:38 Temperature 36.4 C L 04/28/20 22:38 Temperature Source Skin 04/28/20 22:38 Pulse 83 04/28/20 22:38 Respiratory Rate 18 04/28/20 22:44 Respiratory Effort Non-Labored 04/28/20 22:44 Respiratory Depth Normal 04/28/20 22:44 Respiratory Pattern Normal 04/28/20 22:44 Blood Pressure Position Sitting 04/28/20 22:38 Pulse Oximetry 99 04/28/20 22:38 Oxygen Delivery Method Room Air 04/28/20 22:38 Oxygen Flow Rate 0 04/28/20 22:38 Pain Level 2 04/28/20 22:38
[2020-04-28 23:47] VITALS: BP 94/75; PULSE 82; RESP 18; TEMP 36.5; O2SAT 96
--- NOTE | 2020-04-29 06:26 | NUR.NOTE ---
referral faxed to general surgery per Dr. Crow Post for follow up care. Nursing Note:
== END 2020-04-28 23:55 | disposition home or self-care (01) ==
LOC: ER 23:58
PROVIDERS: Emergency Provider Student in an Organized Health Care Education/Training Program
DX: K62.89 Other specified diseases of anus and rectum (principal); K59.00 Constipation, unspecified; I10 Essential (primary) hypertension
CPT/HCPCS: 99283

== ENCOUNTER 2021-08-23 00:37 | Outpatient (CLI) | payer MEDICAID, SELFPAY ==
--- NOTE | 2021-08-23 09:45 | DI.US_ITS ---
Exam(s) US LOWER EXTREMITY VENOUS RT EXAM: US LOWER EXTREMITY VENOUS RT CLINICAL HISTORY: RT LEG SWELLING M79.89 RT CALF PAIN M79.661 TKR Z96.651 TECHNIQUE: Right lower extremity venous ultrasound performed using grayscale, color-flow, and spectr al Doppler analysis. COMPARISON: No exams were available for comparison FINDINGS: The right common femoral, femoral and popliteal veins demonstrate normal compressibility, augmentatio n, and color Doppler. The posterior tibial veins are patent. The saphenofemoral junction is unremark able. There is no evidence of a Cummins cyst. The soft tissues are unremarkable. Mildly prominent sup erficial vein in the posterior calf. But no evidence of superficial thrombophlebitis. IMPRESSION: No DVT. DATA REPOSITORY:
== END 2021-08-23 00:57 ==
PROVIDERS: PCP Nurse Practitioner Family; Visit Provider Nurse Practitioner
DX: M79.89 Other specified soft tissue disorders (principal); M79.661 Pain in right lower leg; Z96.651 Presence of right artificial knee joint
CPT/HCPCS: 93971